=== PATIENT | male | born 1955 | race Caucasian/White ===

== ENCOUNTER 2019-09-19 10:44 | Inpatient (IN) | payer MEDICARE, BC, SELFPAY ==
--- NOTE | 2019-09-19 | ECHO_ITS ---
Patient Info Name: Bijan Garcia Age: 64 years : 1955 Gender: Male Ht: 68 in Wt: 200 lbs BSA: 2.11 m2 HR: 78 bpm BP: 121 / 75 mmHg Technical Quality: Good Exam Date: 09/19/2019 3:53 PM Exam Location: [facility] Pulmonary Exam Room: [facility] Patient Status: Inpatient Admit Date: 09/19/2019 Staff Ordering Physician: Teagan Edmonds NP [employer] Science Tutor: Dariana Pete RDCS Attending Provider: Omari Shetty MD Referring Physician: Grey JOEL; Exam Type: CA echo doppler w bubble study Study Info Indications - cva hx/o cad s/p stent Summary 1. Left ventricular chamber dimension is normal. 2. Left ventricular systolic function is normal, estimated at 65-70%. 3. The left ventricular diastolic function is grade I diastolic dysfunction. 4. E/e' 9 is minimally elevated. 5. Left atrial chamber dimension is mildly enlarged. 6. There is mild aortic valve sclerosis. 7. No pulmonary hypertension, estimated pulmonary arterial systolic pressure is 31 mmHg. Left Ventricle E/e' 9 is minimally elevated. Left ventricular chamber dimension is normal. Left ventricular systolic function is normal, estimated at 65-70%. The left ventricular diastolic function is grade I diastolic dysfunction. Right Ventricle Right ventricular chamber dimension is normal. Right ventricular systolic function is normal. Left Atria Left atrial chamber dimension is mildly enlarged. Right Atria Right atrial chamber dimension is normal. Atrial Septum Agitated saline administered opacified right sided cardiac chambers with and without vasalva maneuver without shunting to left sided chambers. Intact interatrial septum visualized by color flow and agitated saline imaging. Aortic Valve The aortic valve is trileaflet. There is mild aortic valve sclerosis. There is no aortic valve stenosis. There is no aortic valve regurgitation. Pulmonic Valve There is no pulmonic regurgitation. Mitral Valve There is no mitral valve stenosis. There is no mitral valve regurgitation. Tricuspid Valve There is no tricuspid valve regurgitation. No pulmonary hypertension, estimated pulmonary arterial systolic pressure is 31 mmHg. Pericardium/Pleural There is no pericardial effusion. Inferior Vena Cava Normal inferior vena cava with >50% collapse upon inspiration consistent with normal right atrial pressure, 5 mmHg. Aorta The aortic root size at the sinus of Valsalva is normal. Left Ventricular Outflow Tract Name Value Normal LVOT 2D LVOT Diameter 2.0 cm LVOT Doppler LVOT Peak Gradient 4 mmHg LVOT Mean Gradient 2 mmHg LVOT VTI 20 cm LVOT VTI/AV VTI Ratio 0.9 LVOT Stroke Volume 66 ml LVOT CO 13.2 l/min LVOT CI 6.2 l/min/m2 Pulmonic Valve Name Value Normal
--- NOTE | ~2019-09-19 | CT_ITS ---
EXAMINATION: CT brain wo con DATE: 09/19/2019 11:01 INDICATION: Left facial droop and weakness this morning TECHNIQUE: Computed tomography (CT) of the head was performed without intravenous contrast. The mA wa s adjusted according to patient size. Iterative reconstruction technique was employed. Exam dose: 60 5.33 mGy-cm total exam DLP. COMPARISON: None FINDINGS: Bilateral carotid siphon internal carotid artery calcifications. No intracranial mass lesion or hemorrhage or cerebrovascular accident is evident. No midline shift or mass effect. No subdural or epidural hematoma. No fracture or bone destruction of the cranial vault. Included paranasal sinuses and the mastoid air cells are normally developed and aerated. IMPRESSION: Bilateral carotid siphon internal carotid artery calcifications No acute intracranial finding is evident; CT is not sensitive for detection of hyperacute ischemic ce rebrovascular accident. MR brain scan with diffusion imaging would be more sensitive. Reviewed, dictated and finalized at Location [facility]. Reviewed, dictated and finalized at location B. IMPRESSION: Bilateral carotid siphon internal carotid artery calcifications No acute intracranial finding is evident; CT is not sensitive for detection of hyperacute ischemic cerebrovascular accident. MR brain scan with diffusion imag ing would be more sensitive.
--- NOTE | ~2019-09-19 | XR_ITS ---
XR chest 1V portable DATE: 09/19/2019 11:17 INDICATION: Cerebrovascular accident TECHNIQUE: Portable upright AP chest on 09/19/2019 1105 hours COMPARISON: None FINDINGS: There is mild atelectasis at the lung bases. No pulmonary consolidation is evident. No pleu ral effusion or pulmonary vascular congestion or pneumothorax. Normal heart size. Degenerative spurring of the thoracic spine. Osteoarthritis at the left glenohumeral joint. Degenerat j luis change of the left acromioclavicular joint. There is increased density at the metaphysis and proximal shaft of the right humerus which may be due to bone infarct or benign chondroid tumor. IMPRESSION: Mild atelectasis at the lung bases Reviewed, dictated and finalized at location B.
--- NOTE | ~2019-09-19 | CT_ITS ---
EXAMINATION: CT shoulder RT wo con DATE: 09/19/2019 20:34 INDICATION: Right shoulder pain. TECHNIQUE: Computed tomography (CT) of the right shoulder was performed without intravenous contrast. Automated exposure control and iterative reconstruction technique were employed. The dose-length pro duct was 538.43 mGy-cm. COMPARISON: Chest single view 09/19/2019 FINDINGS: Bone alignment is normal. No fracture. In the right humeral surgical neck and proximal diap hysis, there is a 5.4 x 2.8 cm lesion that demonstrates patchy sclerosis. There is mild osteoarthriti s of glenohumeral joint and severe osteoarthritis of acromioclavicular joint. IMPRESSION: 1. 5.4 cm sclerotic lesion in proximal right humerus. The differential diagnosis includes enchondroma and osteonecrosis. 2. Polyarticular osteoarthritis. Reviewed, dictated and finalized at location A. IMPRESSION: 1. 5.4 cm sclerotic lesion in proximal right humerus. The differential diagnosi s includes enchondroma and osteonecrosis. 2. Polyarticular osteoarthritis.
--- NOTE | ~2019-09-19 | US_ITS ---
EXAMINATION: US carotid duplex BI EXAM DATE: 09/19/2019 14:57 INDICATION: Left-sided hemiparesis. TECHNIQUE: Grayscale, color and pulsed Doppler images of the cervical carotid arteries were obtained . The degree of vessel stenosis is placed in one of the following categories: normal, <50% stenosis, 50-69% stenosis, >=70% stenosis but less than near-occlusion, near-occlusion, or occlusion. Note that percent stenosis relative to normal distal artery lumen diameter is indirectly measured from velocit y measurements as described by John, et al. Radiology 2003; 229:340-346. There is no prior study fo r comparison. FINDINGS: RIGHT SIDE: Right common carotid artery peak systolic velocity (PSV in cm/s): 74 Right bulb/internal carotid artery peak systolic velocity (PSV in cm/s): 83 Right internal carotid artery end diastolic velocity (EDV in cm/s): 23 Right ICA/CCA peak systolic ratio: 1.1 Right external carotid artery peak systolic velocity (PSV in cm/s): 100 Right vertebral artery antegrade flow: yes There is mild carotid bulb plaque. Velocity and Doppler waveforms in the common and internal carotid arteries is normal. LEFT SIDE: Left common carotid artery peak systolic velocity (PSV in cm/s): 86 Left bulb/internal carotid artery peak systolic velocity (PSV in cm/s): 76 Left internal carotid artery end diastolic velocity (EDV in cm/s): 27 Left ICA/CCA peak systolic ratio: 0.9 Left external carotid artery peak systolic velocity (PSV in cm/s): 62 Left vertebral artery antegrade flow: yes There is mild carotid bulb plaque. Velocity and Doppler waveforms in the common and internal carotid arteries is normal. IMPRESSION: 1. Less than 50 percent stenosis in the right internal carotid artery. 2. Less than 50 percent stenosis in the left internal carotid artery. > Reviewed, dictated and finalized at location A.
[2019-09-19 10:43] VITALS: BP 161/90; PULSE 92; RESP 14; TEMP 37; O2SAT 98
--- NOTE | 2019-09-19 10:46 | ECG_ITS ---
Measurements Intervals [place] Rate: 89 P: 13 DE: 136 QRS: 45 QRSD: 92 T: -7 QT: 342 QTc: 416 Interpretive Statements SINUS RHYTHM BORDERLINE ST-T WAVE ABNORMALITY- INF/LAT LEADS BORDERLINE ECG Electronically Signed On 09-19-2019 11:14:56 CDT by Kevin Story D.O.
[2019-09-19 10:56] LABS: Glucose Point of Care 220 (65-105)
--- NOTE | 2019-09-19 10:58 | ED.NEUROSD ---
HPI - Neuro Symptoms/Deficit General Chief Complaint: Neuro Symptoms/Deficit <BARBER Helm Last Filed: 09/19/19 15:39> Stated Complaint: L SIDED FACIAL WEAKNESS <BARBER Helm Last Filed: 09/19/19 15:39> Time Seen by Provider: 09/19/19 10:46 <BARBER Helm Last Filed: 09/19/19 15:39> Source: patient <BARBER Helm Last Filed: 09/19/19 15:39> Mode of arrival: ambulatory <BARBER Helm Last Filed: 09/19/19 15:39> Limitations: no limitations <BARBER Helm Filed: 09/19/19 15:39> History of Present Illness HPI Narrative: Patient is a 64-year-old male who presents with strokelike symptoms that began this morning patient notes that he was 10 minutes before 7 eating breakfast and noticed that he had some left-sided facial droop and weakness at the angle of the mouth patient notes that he also had mild headache at this time and some mild left eye discomfort. Patient denies similar occurrence of injury trauma or illness. On arrival patient resting comfortably in the room has not taken anything for his symptoms <BARBER Helm Last Filed: 09/19/19 15:39> Related Data Home Medications: Home Medications Medication Instructions Recorded Confirmed atorvastatin 20 mg PO DAILY 09/19/19 09/19/19 cholecalciferol (vitamin D3) 125 mcg PO DAILY 09/19/19 09/19/19 [Vitamin D3] lisinopril 5 mg PO DAILY 09/19/19 09/19/19 metformin 850 mg PO BID 09/19/19 09/19/19 sitagliptin [Januvia] 100 mg DAILY 09/19/19 09/19/19 <BARBER Helm Last Filed: 09/19/19 15:39> Allergies/Adverse Reactions: Allergies Allergy/AdvReac Type Severity Reaction Status Date / Time Iodinated Contrast Media Allergy Hives Verified 09/19/19 11:08 <BARBER Helm Last Filed: 09/19/19 15:39> Review of Systems Review of Systems: All systems reviewed & are unremarkable except as noted in HPI and below <Jairo Kelley PA-C - Last Filed: 09/19/19 15:39> [facility] Past Medical History Medical History: Medical History (Updated 09/19/19 @ 15:37 by Teagan Edmonds NP) Diabetes mellitus Hyperlipidemia Hypertension <Jairo Kelley PA-C - Last Filed: 09/19/19 15:39> Surgical History Surgical History: Surgical History (Updated 09/19/19 @ 15:38 by Teagan Edmonds NP) H/O heart artery stent about 20 years ago 1 stent. H/O shoulder surgery left side <Jairo Kelley PA-C - Last Filed: 09/19/19 15:39> Social History Social History: Social History Smoking status: Former smoker Alcohol intake: former Substance use: never Gender identity (if verbalized by the patient): Male Spiritual care concerns: No Agree to blood products: Yes <Jairo Kelley PA-C - Last Filed: 09/19/19 15:39> Exam Narrative: Exam Narrative: GENERAL: Well-appearing, well-nourished, and in no acute distress. HEAD: Normocephalic, atraumatic. EYES: PERRLA and EOMI. ENT: Nares clear, no rhinorrhea or epistaxis. Mucous membranes moist. Oropharynx without tonsillar hypertrophy exudate or other lesions. NECK: Supple. No adenopathy or masses. No carotid bruits or JVD CHEST: Clear to auscultation. No respiratory distress. No wheezes rales or rhonchi HEART: Regular rate and rhythm. No murmur heard. Normal peripheral pulses. ABDOMEN: Soft, nontender, nondistended EXTREMITIES: Normal range of motion. No edema. SKIN: Warm, dry, no rash. NEURO: No focal deficits aside from drooping of the angle of the left side of the mouth. Alert and oriented x3. Cranial nerves II through XII grossly intact. Normal speech. Motor and sensory intact and symmetrical in the extremities. No pronator drift. Normal [id number] and [id number]. 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 <Jairo Kelley PA-C - Last Filed: 09/19/19 15:39> Course Course Emerg
[2019-09-19] MEDS: SODIUM CHLORIDE 0.9% IV 1,000 ML 999 ML IV CONT (11:16)
[2019-09-19 11:35] LABS: Basophils Percent Auto 0.3 % (0.2-1.2); Eosinophils Absolute Auto 0.2 K/mm3 (0-0.3); Eosinophils Percent Auto 4.2 % (0-4.4); Hemoglobin 16.4 g/dL (14.0-18.0); Immature Granulocyte Absolute 0.02 K/mm3 (0.00-0.031); Immature Granulocyte Percent A 0.5 % (0-0.5); Immature Platelet Fraction Pct 5.1 % (0.9-11.2); Lymphocytes Percent Auto 36.7 % (18.3-44.2); Mean Corpuscular HGB Conc 35.7 g/dl (32-36); Mean Corpuscular Hemoglobin 31.5 pg (26-34); Mean Corpuscular Volume 88.3 fl (80-100); Monocytes Absolute Auto 0.4 K/mm3 (0.1-0.6); Neutrophils Absolute Auto 1.8 K/mm3 (1.3-6.7); Neutrophils Percent Auto 48.3 % (45.5-73.1); Platelet Count Result 101 k/mm3 (150-375); Red Blood Count 5.21 M/mm3 (4.6-6.20); Red Cell Distribution Width 12.6 % (11.5-14.5); White Blood Count 3.8 K/mm3 (4.5-10.0)
[2019-09-19 11:38] VITALS: BP 132/81; PULSE 87; RESP 16; O2SAT 96
[2019-09-19 11:40] LABS: Prothrombin Time 12.7 Seconds (11.1-14.7)
[2019-09-19 11:41] LABS: Blood Urea Nitrogen 19 mg/dL (9-20); Calcium 9.5 mg/dL (8.4-10.2); Carbon Dioxide 23 mmol/L (22-30); Chloride 101 mmol/L (98-107); Estimated Glomerular Filt Rate > 60; Glucose 200 mg/dL (75-110); Partial Thromboplastin Time 28.8 SECONDS (22.3-36.8); Potassium 4.1 mmol/L (3.4-5.0); Sodium 136 mmol/L (137-145)
[2019-09-19 11:53] LABS: Troponin I < 0.012 ng/mL (0.000-0.034)
[2019-09-19] MEDS: ASPIRIN 325 MG TABLET PO (12:20)
[2019-09-19 13:31] VITALS: BP 121/75; PULSE 78; RESP 19; O2SAT 96
[2019-09-19 13:36] VITALS: BMI 32.5
[2019-09-19] MEDS: LACTATED RINGERS 1,000 ML 75 ML IV CONT (14:03)
[2019-09-19 14:24] LABS: Glucose Point of Care 226 (65-105)
[2019-09-19 14:49] VITALS: PULSE 77
--- NOTE | 2019-09-19 15:28 | PM.IMHP ---
H&P: HPI History of Present Illness Chief complaint: CVA Narrative: Bijan Garcia is a 64 year old maleWith a past medical history of diabetes type 2, hypertension and hyperlipidemia. The patient stated that he woke up this morning and was eating cereal noticed that he was drooling somewhat around 7:00 a.m. this morning. The patient ran some errands and then noticed that his left eye was watering and was concerned about his eyesight. He spoke to his was a nurse. The patient decided to come to the emergency room. He was outside the 90 minutes window. He does take an aspirin at home. He just noticed the left facial droop and no other neurological problems. The carotid Doppler studies was performed an EKOS been ordered. CT scan was read as no acute intracranial findings is evidence CT is not sensitive for detection of hyperactive ischemic cerebrovascular accident MR brain scan was diffuse imaging would be more sensitive. However the patient does have cardiac stents from about 20 years ago and he is ineligible for a MRI. The patient's blood sugars have been in the 200s today. Patient stated they are typically in the 100s. Date of service 09/19/2019 Review of Systems Review of Systems: Narrative: no fever no chills All systems reviewed & are unremarkable except as noted in HPI and below Constitutional: Constitutional: Reports as per HPI and Reports no additional constitutional complaints Eyes: Eyes: Reports as per HPI and Reports no additional eye complaints ENT: Reports system reviewed and no additional complaints, except as documented and Reports Normal hearing present Cardiovascular: Cardiovascular: Reports no additional cardiovascular complaints Respiratory: Respiratory: Reports no additional respiratory complaints and Reports no additional respiratory complaints Gastrointestinal: Gastrointestinal: Reports as per HPI and Reports no additional gastrointestinal complaints Musculoskeletal: Musculoskeletal: Reports no additional musculoskeletal complaints Integumentary/Breasts: Skin/Breast: Reports system reviewed and no additional complaints, except as docu and Reports as per HPI Neurologic: Reports system reviewed and no additional complaints, except as documented, Reports as per HPI and Reports Normal hearing present Psychiatric: Psychiatric: Reports no additional psychiatric complaints and Reports as per HPI Endocrine: Endocrine: Reports no additional endocrine complaints Hematologic/Lymphatic: Hematologic/Lymphatic: Reports no additional hematologic/lymphatic complaints Allergic/Immunologic: Allergic/Immunologic: Reports no additional allergic/immunologic complaints [facility] Past Medical History Medical History (Updated 09/19/19 @ 15:37 by Teagan A. Benhoff, ACRYLIC FABRICATOR) Diabetes mellitus Hyperlipidemia Hypertension Surgical History Surgical History (Updated 09/19/19 @ 15:38 by Teagan Edmonds NP) H/O heart artery stent about 20 years ago 1 stent. H/O shoulder surgery left side Family History Family History (Updated 09/19/19 @ 15:45 by Teagan Edmonds NP) Father Parkinsons Mother Polio Sibling Pacemaker Social History Social History Smoking status: Former smoker Alcohol intake: former Substance use: never Gender identity (if verbalized by the patient): Male Spiritual care concerns: No Agree to blood products: Yes Meds Home Medications and Allergies Home Medications Medication Instructions Recorded Confirmed Type atorvastatin 20 mg PO DAILY 09/19/19 09/19/19 History cholecalciferol (vitamin D3) 125 mcg PO DAILY 09/19/19 09/19/19 History [Vitamin D3] lisinopril 5 mg PO DAILY 09/19/19 09/19/19 History metformin 850 mg PO BID 09/19/19 09/19/19 History sitagliptin [Januvia] 100 mg DAILY 09/19/19 09/19/19 History Allergies Allergy/AdvReac Type Severity Reaction Status Date / Time Iodinated Contrast Media All
[2019-09-19 16:00] VITALS: BP 125/68; PULSE 74; PULSE 79; RESP 14; TEMP 36.7; O2SAT 98
[2019-09-19] MEDS: INSULIN ASPART (*BKC) 100 UNITS/ML SUB-Q (17:26)
[2019-09-19 17:42] LABS: Glucose Point of Care 262 (65-105)
[2019-09-19 20:00] VITALS: BP 131/80; PULSE 73; RESP 18; TEMP 36.1; O2SAT 96
[2019-09-19] MEDS: FAMOTIDINE 20 MG/2 ML VIAL IV PUSH (21:00)
[2019-09-20] VITALS (7 sets, daily range): BP systolic 145–150; BP diastolic 86–91; PULSE 57–82; RESP 14–16; TEMP 36.2–36.3; O2SAT 95–98
[2019-09-20 06:15] LABS: Basophils Percent Auto 0.3 % (0.2-1.2); Eosinophils Absolute Auto 0.1 K/mm3 (0-0.3); Eosinophils Percent Auto 4.4 % (0-4.4); Hematocrit 44.8 % (42.0-52.0); Hemoglobin 15.3 g/dL (14.0-18.0); Immature Granulocyte Absolute 0.01 K/mm3 (0.00-0.031); Immature Granulocyte Percent A 0.3 % (0-0.5); Lymphocytes Absolute Auto 1.57 K/mm3 (0.9-3.2); Lymphocytes Percent Auto 49.5 % (18.3-44.2); Mean Corpuscular HGB Conc 34.2 g/dl (32-36); Mean Corpuscular Hemoglobin 30.8 pg (26-34); Mean Corpuscular Volume 90.1 fl (80-100); Mean Platelet Volume 10.9 fl (7.4-10.4); Monocytes Absolute Auto 0.4 K/mm3 (0.1-0.6); Neutrophils Absolute Auto 1.1 K/mm3 (1.3-6.7); Neutrophils Percent Auto 34.5 % (45.5-73.1); Platelet Count Result 87 k/mm3 (150-375); Red Blood Count 4.97 M/mm3 (4.6-6.20); Red Cell Distribution Width 12.4 % (11.5-14.5); White Blood Count 3.2 K/mm3 (4.5-10.0)
[2019-09-20 06:24] LABS: Alanine Aminotransferase 55 U/L (4-50); Albumin Level 3.9 g/dL (3.5-5.1); Alkaline Phosphatase 49 U/L (38-126); Aspartate Amino Transferase 46 U/L (17-59); Bilirubin,Total 1.7 mg/dL (0.2-1.3); Blood Urea Nitrogen 14 mg/dL (9-20); Carbon Dioxide 25 mmol/L (22-30); Chloride 104 mmol/L (98-107); Estimated CRCL calculation 101 ml/min; Estimated Glomerular Filt Rate > 60; Glucose 257 mg/dL (75-110); Hemoglobin A1C 9.6 % (<5.7); Magnesium 1.5 mg/dL (1.6-2.3); Sodium 137 mmol/L (137-145)
[2019-09-20 07:53] LABS: Glucose Point of Care 181 (65-105)
[2019-09-20] MEDS: CHOLECALCIFEROL 1,000 UNIT TABLET 5000 UNITS PO (09:26)
[2019-09-20] MEDS: ATORVASTATIN 20 MG TABLET PO (09:26)
[2019-09-20] MEDS: ASPIRIN 81 MG ENTERIC TABLET PO (09:26)
[2019-09-20] MEDS: MAGNESIUM SULFATE 3GM/D5W100ML 3 GM/100 ML BAG IVPB (09:27)
[2019-09-20] MEDS: INSULIN ASPART (*BKC) 100 UNITS/ML SUB-Q (11:29)
[2019-09-20 11:41] LABS: Glucose Point of Care 253 (65-105)
--- NOTE | 2019-09-20 12:56 | CONS_ITS ---
DATE OF CONSULTATION: HISTORY OF PRESENT ILLNESS: This 64-year-old has been admitted to [facility] through the emergency room with the ongoing history of 1. Diabetes mellitus, type 2. 2. Hypertension. 3. Hyperlipidemia. 4. History of waking up in the morning, while eating cereal, was drooling on somewhat around 7:00 a.m. in the morning. He was able to run from and noted that his left eye was watering and was concerned about his vision. He spoke to his with the nurse. He was sent to the emergency room and he was obviously outside the 90 minutes window. He did take an aspirin at home that he noted left side of the face was drooping, but with no other neurological symptomatology. Initial CT scan in the emergency room was negative. Brain scan was ordered subsequently. The patient has had a cardiac stent about 20 years ago and was ineligible for an MRI and blood sugar had been running in 200s. MEDICAL HISTORY: He has ongoing history of, as mentioned above, diabetes mellitus with hypertension and hyperlipidemia in the past. He has undergone coronary stenting about 20 years ago and a shoulder surgery on the left side. SOCIAL HISTORY: He is a former smoker. Does not use substance and former drinker as well. MEDICATIONS: At the time of admission to the hospital, he was taking 1. Atorvastatin 20 mg daily. 2. Cholecalciferol 125 mcg daily. 3. Lisinopril 5 mg daily. 4. Metformin 850 twice a day. 5. Sitagliptin 100 mg daily. ALLERGIES: HE IS ALLERGIC TO IODINE DYE. PHYSICAL EXAMINATION: VITAL SIGNS: Evaluation up until now revealed to be afebrile with pulse of 92, respirations 14, blood pressure 161/90, came down to 121/75, pulse ox 98%. GENERAL: Examination revealed him to be awake, alert, cooperative, in no obvious acute distress. HEENT: Normocephalic. Pupils round and regular. Juarez of vision full. Extraocular movements full. Face symmetrical. Tongue midline. NECK: There is no cervical bruit. No meningeal signs. HEART: Regular with no murmur. LUNGS: Clear to auscultation. ABDOMEN: Soft with no organomegaly. NEUROLOGICAL: He is awake, alert, and oriented x3. His speech not dysphasic, not dysarthric, not dysphonic. Pupils round and regular. Juarez of vision full. Extraocular movements full. Face symmetrical. Tongue midline. Motor examination revealed him to have no drift of 1 side, other side, tone normal. Reflexes symmetrical. Plantars downgoing. There is no evidence of gross cerebellar deficit. LABORATORY DATA: Evaluation up until now revealed him to have normal CBC except WBC 3.8, hemoglobin 16.4, platelet count also 101. The basic metabolic panel is normal with glucose 200. Troponin less than 0.012. Initial CT scan of the head is with bilateral carotid siphon internal carotid artery calcification with a CT scan stealth is negative. Chest x-ray with mild atelectasis at the lung bases. Carotid study, less than 50% stenosis bilaterally. At this stage, the patient is receiving 1. Atorvastatin 20 mg daily. 2. Lisinopril 5 mg daily. 3. Metformin 850 twice a day. 4. Sitagliptin 100 mg daily. MRI of the brain was obtained for further delineation whether he has early stroke or not. In the meantime, treatment will be continued as such. ARNULFO BARCLAY M.D. SEMICONDUCTOR DEVELOPMENT TECHNICIAN SEMICONDUCTOR DEVELOPMENT TECHNICIAN D I MT: Brenda ALLEN
--- NOTE | 2019-09-20 14:56 | PM.DS ---
DS: Diagnosis Admitting Diagnosis Admitting Diagnosis: Cerebral infarction, unspecified Discharge Diagnosis (1) Cerebrovascular accident: Code(s): I63.9 - Cerebral infarction, unspecified Status: Acute Assessment and Plan: Presented with left sided facial droop. He is unable to get MRI due to his cardiac stent. CT of the brain was negative. Echo showed Left ventricular chamber dimension is normal. Left ventricular systolic function is normal, estimated at 65-70%. The left ventricular diastolic function is grade I diastolic dysfunction. E/e' 9 is minimally elevated. Left atrial chamber dimension is mildly enlarged. There is mild aortic valve sclerosis. No pulmonary hypertension, estimated pulmonary arterial systolic pressure is 31 mmHg. Carotid artery showed Less than 50 percent stenosis in the right internal carotid artery. Less than 50 percent stenosis in the left internal carotid artery. Dr. Ortiz Neurologist evaluated the patient and recommended starting Aspirin 81 mg daily, then adding Plavix 75 mg daily for [address] Ortiz recommended since he cannot have IV Contrast and Cannot have an MRI, to repeat CT Brain in 4-5 days and have him follow up in the office for further evaluation. Will have the patient check and outpatient Fasting Lipid Panel in 1 week and follow up with PCP. The patient understands and agrees with the plan. All questions answered. (2) Diabetes mellitus: Code(s): E11.9 - Type 2 diabetes mellitus without complications Status: Chronic Assessment and Plan: The patient states he has been diagnosed with diabetes for the last 2 years. I informed him hemoglobin A1c is 9.6 today and his states this is improved. The patient states his morning glucose usually runs around 180. He has never been on insulin before. He reports gaining 30 lb recently. I informed the patient that he needs better diabetes control because it can cause further damage to his arteries and cause further MRIs or CVAs. Told patient he has a follow-up with his primary care provider within 1 week for further evaluation and he may need to be started on insulin for better diabetes control until he can lose weight, exercise, work on his diet. The patient understands and agrees the plan all questions answered. (3) Hypertension: Code(s): I10 - Essential (primary) hypertension Status: Chronic Assessment and Plan: BP this morning was slightly elevated at 150/91. He was continued on his home medications. (4) Hyperlipidemia: Code(s): E78.5 - Hyperlipidemia, unspecified Status: Chronic Assessment and Plan: Continue with statin. Will recheck a fasting lipid panel in 1 week. DS: Summary Hospital Course Reason for hospitalization: The patient is a 64-year-old man with a history of diabetes type 2, hypertension, hyperlipidemia, [place] in 1999, who presented to the emergency room with left-sided facial droop since around 7:00 a.m. prior to arrival. 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 Initial vitals showed temperature 98.6?, blood pressure 161/90, heart rate 92, respiratory rate 14, oxygen saturation 98% on room air. Initial labs showed slight leukopenia at 3,800, thrombocytopenia at 101, normal coag panel, slight hyponatremia at 136, serum glucose 200, negative troponin. CT Head showed Bilateral carotid siphon internal carotid artery calcifications. No acute intracranial finding is evident; CT is not sensitive for detection of hyperacute ischemic cerebrovascular accident. MR brain scan with diffusion imaging would be more sensitive. The patient
== END 2019-09-20 16:20 | disposition home or self-care (01) | DRG 66 ==
LOC: ANHED 12:27 → ANH3MED 12:41
PROVIDERS: Emergency Medicine Emergency Medical Services; Nurse Practitioner; Admitting Provider Internal Medicine; Emergency Provider Emergency Medicine; Visit Provider Physician Assistant
DX: I63.50 Cerebral infarction due to unspecified occlusion or stenosis of unspecified cerebral artery (principal); G47.33 Obstructive sleep apnea (adult) (pediatric); I10 Essential (primary) hypertension; E78.5 Hyperlipidemia, unspecified; E11.9 Type 2 diabetes mellitus without complications; Z79.82 Long term (current) use of aspirin; Z95.5 Presence of coronary angioplasty implant and graft; R29.810 Facial weakness; Z87.891 Personal history of nicotine dependence; I25.2 Old myocardial infarction
CPT/HCPCS: 36415; 70450; 71045; 73200; 80048; 80053; 82948; 83036; 83735; 84443; 84484; 85025; 85055; 85610; 85730; 93005; 93306; 93880; 96360; 96375; 99285; A9270; J1815; J3475; J7030; J7120

== ENCOUNTER 2024-12-06 07:26 | Outpatient (CLI) | payer MEDICARE, BC, SELFPAY ==
--- NOTE | ~2024-12-06 | MR_ITS ---
MRI of the right knee Clinical history: Pain Technique: Coronal proton density and proton density-weighted images, sagittal proton-density and T2 fat-sat images, and axial proton-density fat-saturated images were acquired. Findings: Anterior and posterior cruciate ligaments are intact. Medial collateral ligament and the la teral collateral ligament, posterior intact. Popliteus tendon is intact. There is complex tearing of the body segment of the medial meniscus which is partially extruded into the medial gutter. No lateral meniscal tear seen. 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 There is extensive moderate to high-grade chondromalacia the medial femoral condyle and at the inner aspect of the medial tibial plateau. Bone marrow signals are unremarkable. Extensor mechanism is intact. Minimal joint effusion present. No David's cyst. Impression: Complex tearing of the body segment of the medial meniscus. Degenerative change of the medial and patellofemoral compartments, as above. Reviewed, dictated and finalized at location . Impression: Complex tearing of the body segment of the medial meniscus. Degenerative change of the medial and patellofemoral compartments, as above.
== END 2024-12-06 07:27 | disposition home or self-care (01) ==
LOC: MICIMG 07:27
PROVIDERS: PCP Family Medicine; Visit Provider Family Medicine
DX: S83.231A Complex tear of medial meniscus, current injury, right knee, initial encounter (principal); M17.11 Unilateral primary osteoarthritis, right knee; X58.XXXA Exposure to other specified factors, initial encounter
CPT/HCPCS: 73721

== ENCOUNTER 2025-05-03 17:10 | Emergency (ER) | payer MEDICARE, BC, SELFPAY ==
--- NOTE | ~2025-05-03 | CT_ITS ---
CT abdomen pelvis wo con INDICATION:incarcerated inguinal hernia . COMPARISON: None. TECHNIQUE: Axial 2.5 mm images of the abdomen were obtained without IV or oral contrast. Diagnostic sensitivity is limited due to lack of IV contrast. FINDINGS: The lung bases are clear. Nodular liver may represent cirrhosis. Correlate clinically. Spleen is enlarged. No intrahepatic mass or ductal dilatation is evident. The gallbladder is unremarkable. Pancreas is unremarkable. The adrenal glands are symmetric in size. The kidneys are unremarkable. No intrarenal stones are noted. There is no hydronephrosis. The stomach and bowel loops are unremarkable. The appendix is normal in appearance. There is colonic diverticulosis without evidence of acute diverticulitis. There is right inguinal hernia containing distal ileum. The bladder and rectum are normal. No free intraperitoneal fluid or air is evident. There is no significant retroperitoneal lymphadenopathy. The aorta, visceral vessels and renal arteries demonstrate normal caliber. The lower thoracic and lumbar vertebrae are in normal alignment. IMPRESSION: Right inguinal hernia containing small bowel loops. No bowel obstruction. Splenomegaly. Nodular liver suggestive of cirrhosis. All CT scans at this facility are performed using low dose modulation techniques as appropriate to perform exam including the following: automated exposure control; use of iterative reconstruction technique; adjustment of the mA and/or kV according to patient size (this includes techniques or standardized protocols for targeted exams where dose is matched to indication/reason for exam). Reviewed, dictated and finalized at location S. [facility] IMPRESSION: Right inguinal hernia containing small bowel loops. No bowel obstruction. Splenomegaly. Nodular liver suggestive of cirrhosis. All CT scans at this facility are performed using low dose modulation techniqu es as appropriate to perform exam including the following: automated exposure c ontrol; use of iterative reconstruction technique; adjustment of the mA and/or kV according to patient size (this includes techniques or standardized protocol s for targeted exams where dose is matched to indication/reason for exam).
[2025-05-03 17:11] VITALS: BP 136/93; PULSE 100; RESP 18; TEMP 36.6; O2SAT 99
[2025-05-03 17:24] VITALS: BP 143/88; PULSE 103; RESP 16; O2SAT 99
--- NOTE | 2025-05-03 17:28 | PC.NURSE ---
Pt. states he would prefer to try and provide urine sample until after receiving pain medication d/t increased pain with movement.
--- NOTE | 2025-05-03 17:53 | PC.NURSE ---
Pt. to CT.
[2025-05-03 18:27] LABS: Hematocrit 41.4 % (42.0-52.0); Hemoglobin 14.9 g/dL (14.0-18.0); Immature Granulocyte Percent A 0.3 % (0-0.5); Lymphocytes Absolute Auto 1.51 K/mm3 (0.9-3.2); Mean Corpuscular HGB Conc 36.0 g/dl (32-36); Mean Corpuscular Hemoglobin 30.6 pg (26-34); Mean Corpuscular Volume 85.0 fl (80-100); Nucleated Red Blood Cells Absolute Auto 0.000 K/mm3 (0.0-0.012); Nucleated Red Blood Cells Perc 0.0 % (0.0-0.2); Platelet Count Result 121 k/mm3 (150-375); Red Blood Count 4.87 M/mm3 (4.6-6.20); White Blood Count 3.8 K/mm3 (4.5-10.0)
[2025-05-03 18:38] LABS: INR 1.2; Prothrombin Time 14.7 Seconds (11.1-14.7)
[2025-05-03 18:42] VITALS: BP 162/93; PULSE 96; RESP 16; O2SAT 97
[2025-05-03] MEDS: ONDANSETRON INJ 4 MG/2 ML VIAL IV PUSH (18:43)
[2025-05-03 18:44] LABS: Alanine Aminotransferase 28 U/L (6-50); Albumin Level 4.4 g/dL (3.5-5.1); Alkaline Phosphatase 67 U/L (38-126); Anion Gap 10 mmol/L (4-12); Aspartate Amino Transferase 24 U/L (17-59); Bilirubin,Total 2.9 mg/dL (0.2-1.3); Blood Urea Nitrogen 23 mg/dL (9-20); Calcium 9.3 mg/dL (8.4-10.2); Carbon Dioxide 22 mmol/L (22-30); Chloride 104 mmol/L (98-107); Estimated CRCL calculation 72 ml/min; Estimated Glomerular Filt Rate > 60; Glucose 201 mg/dL (65-110); Lipase 70 U/L (23-300); Potassium 3.9 mmol/L (3.4-5.0); Sodium 136 mmol/L (137-145); Total Protein 6.9 g/dL (6.3-8.2)
[2025-05-03] MEDS: diazePAM INJ (*CRX) 10 MG/2 ML SYRINGE 2.5 MG IV PUSH (18:46)
[2025-05-03] MEDS: MORPHINE SULFATE (*CRX) 4 MG/ML INJ IV PUSH (18:52)
--- NOTE | 2025-05-03 18:58 | PC.NURSE ---
Dr. Gonzalez at bedside and able to reduce R. inguinal hernia. Pt. states it feels back to his normal.
--- NOTE | 2025-05-03 19:53 | ED.ABDPAIN ---
HPI - Abdominal Pain General Chief Complaint: Abdominal Pain Stated Complaint: hernia issue Time Seen by Provider: 05/03/25 17:28 Source: patient Mode of arrival: ambulatory Limitations: no limitations History of Present Illness HPI narrative: 70-year-old with a history of hypertension, hyperlipidemia, right inguinal hernia presents to the ER with severe pain in the right inguinal area. Patient states that he can manually reduce on his own however on at this time he is unable to reduce the having significant pain. Denies any nausea or vomiting. MD elicited complaint: abdominal pain Pertinent past history: none Onset (ago): hour(s) (1) Pain Consistency: constant Location: RLQ Severity: moderate Quality: aching Radiation: RLQ Migration to: no migration Exacerbating factors: nothing Relieving factors: nothing Related Data Home Medications ?Medication ?Instructions ?Recorded ?Confirmed ?Last Taken ?Type atorvastatin 20 mg tablet 20 mg PO DAILY 09/19/19 09/19/19 09/19/19 History cholecalciferol (vitamin D3) 125 125 mcg PO DAILY 09/19/19 09/19/19 Unknown History mcg (5,000 unit) tablet (Vitamin D3) lisinopril 5 mg tablet 5 mg PO DAILY 09/19/19 09/19/19 09/19/19 History metformin 850 mg tablet 850 mg PO BID 09/19/19 09/19/19 09/19/19 History sitagliptin phosphate 100 mg 100 mg DAILY 09/19/19 09/19/19 09/19/19 History tablet (Januvia) Allergies Allergy/AdvReac Type Severity Reaction Status Date / Time Iodinated Contrast Media Allergy Hives Verified 05/03/25 17:13 Review of Systems Review of Systems: All systems reviewed & are unremarkable except as noted in HPI and below Constitutional: Constitutional: Reports no additional constitutional complaints Eyes: Eyes: Reports no additional eye complaints ENT: Reports system reviewed and no additional complaints, except as documented Cardiovascular: Cardiovascular: Reports no additional cardiovascular complaints Respiratory: Respiratory: Reports no additional respiratory complaints Gastrointestinal: Gastrointestinal: Reports as per HPI Musculoskeletal: Musculoskeletal: Reports no additional musculoskeletal complaints [facility] Past Medical History Medical History Hyperlipidemia Hypertension Diabetes mellitus Surgical History Surgical History H/O heart artery stent about 20 years ago 1 stent. H/O shoulder surgery left side Family History Family History Father Parkinsons Mother Polio Sibling Pacemaker Social History Social History Smoking status: Former smoker Alcohol intake: former Substance use: never Gender identity (if verbalized by the patient): Male Spiritual care concerns: No Agree to blood products: Yes Exam Narrative: GENERAL: Well-appearing, well-nourished, and in no acute distress. HEAD: Normocephalic, atraumatic. EYES: PERRLA and EOMI. ENT: Nares clear, no rhinorrhea or epistaxis. Mucous membranes moist. NECK: Supple. CHEST: Clear to auscultation. No respiratory distress. HEART: Regular rate and rhythm. No murmur heard. Normal peripheral pulses. ABDOMEN: Soft, nontender, nondistended, has right inguinal hernia , tender and on palpation . EXTREMITIES: Normal range of motion. No edema. SKIN: Warm, dry, no rash. NEURO: No focal deficits. Alert and oriented x3. PSYCH: Normal mood and affect. Course Course Emergency Course: pt was given IV morphine for pain control and Valium 2.5 mg to relax , once pain improved i was able to reduce the Hernia, he feels much better , i discussed with Dr. Paez , pt can be discharged home and followed in the office on Tuesday . i did inform the pt about his lab and CT findings, he does feel comfortable going home. Vital Signs Vital signs: Vital Signs Temperature 36.6 C 05/03/25 17:11 Pulse Rate 100 05/03/25 17:11 Respiratory Rate 18 05/03/25 17:11 Blood Pressure 136/93 H 05/03/25 17:11 Pulse Oximetry 99 05/03/25 17:11 Oxygen Delivery Room Air 05/03/25 17:11 Temperature 36.6 C 05/03/25 17:11 Pulse Rate 96 05/03/25 18:42 Respiratory Rate 16 05/03/25 18:42 Blood Pressure 162/93 H 05/03/25 18:42 Pulse Oximetry 97 05/03/25 18:42 Oxygen Delivery Room Air 05/03/25 17:24 MDM - Abdominal Pain Lab Data 05/03/25 18:12 11/14/25 18:12 Labs: Lab Results 05/03/25 05/03/25 05/03/25 Range/Units 18:12 18:12 18:12 WBC 3.8 L Cancelled (4.5-10.0) K/mm3 RBC 4.87 Cancelled (4.6-6.20) M/mm3 Hgb 14.9 (14.0-18.0) g/dL Hct (42.0-52.0) % MCV (80-100) fl MCH (26-34) pg MCHC (32-36) g/dl RDW (11.5-14.5) % Plt Count (150-375) k/mm3 MPV (7.4-10.4) fl Immature Gran % (Auto) (0-0.5) % Neut % (Auto) (45.5-73.1) % Lymph % (Auto) (18.3-44.2) % [place] % (Auto) (2.6-8.5) % Eos % (Auto) (0-4.4) % Baso % (Auto) (0.2-1.2) % Lymph # (Auto) (0.9-3.2) K/mm3 [place] # (Auto) (0.1-0.6) K/mm3 Eos # (Auto) (0-0.3) K/mm3 Baso # (Auto) (0.0-0.1) K/mm3 Abs Immat Gran (auto) (0.00-0.031) K/mm3 Absolute Neuts (auto) (1.3-6.7) K/mm3 Absolute Nucleated RBC (0.0-0.012) K/mm3 Nucleated RBC % (0.0-0.2) % % Immature Plt Fraction PT (11.1-14.7) Seconds INR Sodium (137-145) mmol/L Potassium (3.4-5.0) mmol/L Chloride (98-107) mmol/L Carbon Dioxide (22-30) mmol/L Anion Gap (4-12) mmol/L BUN (9-20) mg/dL Creatinine (0.7-1.3) mg/dL Estim Creat Clear Calc ml/min Estimated GFR (59 - ) Glucose (65-110) mg/dL Lactic Acid (0.7-2.0) mmol/L Calcium (8.4-10.2) mg/dL Total Bilirubin (0.2-1.3) mg/dL AST (17-59) U/L ALT (6-50) U/L Alkaline Phosphatase (38-126) U/L Total Protein (6.3-8.2) g/dL Albumin (3.5-5.1) g/dL Lipase (23-300) U/L 05/03/25 05/03/25 05/03/25 Range/Units 18:12 18:12 18:12 WBC (4.5-10.0) K/mm3 RBC (4.6-6.20) M/mm3 Hgb Cancelled (14.0-18.0) g/dL Hct 41.4 L Cancelled (42.0-52.0) % MCV 85.0 Cancelled (80-100) fl MCH 30.6 (26-34) pg MCHC (32-36) g/dl RDW (11.5-14.5) % Plt Count (150-375) k/mm3 MPV (7.4-10.4) fl Immature Gran % (Auto) (0-0.5) % Neut % (Auto) (45.5-73.1) % Lymph % (Auto) (18.3-44.2) % [place] % (Auto) (2.6-8.5) % Eos % (Auto) (0-4.4) % Baso % (Auto) (0.2-1.2) % Lymph # (Auto) (0.9-3.2) K/mm3 [place] # (Auto) (0.1-0.6) K/mm3 Eos # (Auto) (0-0.3) K/mm3 Baso # (Auto) (0.0-0.1) K/mm3 Abs Immat Gran (auto) (0.00-0.031) K/mm3 Absolute Neuts (auto) (1.3-6.7) K/mm3 Absolute Nucleated RBC (0.0-0.012) K/mm3 Nucleated RBC % (0.0-0.2) % % Immature Plt Fraction PT (11.1-14.7) Seconds INR Sodium (137-145) mmol/L Potassium (3.4-5.0) mmol/L Chloride (98-107) mmol/L Carbon Dioxide (22-30) mmol/L Anion Gap (4-12) mmol/L BUN (9-20) mg/dL Creatinine (0.7-1.3) mg/dL Estim Creat Clear Calc ml/min Estimated GFR (59 - ) Glucose (65-110) mg/dL Lactic Acid (0.7-2.0) mmol/L Calcium (8.4-10.2) mg/dL Total Bilirubin (0.2-1.3) mg/dL AST (17-59) U/L ALT (6-50) U/L Alkaline Phosphatase (38-126) U/L Total Protein (6.3-8.2) g/dL Albumin (3.5-5.1) g/dL Lipase (23-300) U/L 05/03/25 05/03/25 05/03/25 Range/Units 18:12 18:12 18:12 WBC (4.5-10.0) K/mm3 RBC (4.6-6.20) M/mm3 Hgb (14.0-18.0) g/dL Hct (42.0-52.0) % MCV (80-100) fl MCH Cancelled (26-34) pg MCHC 36.0 Cancelled (32-36) g/dl RDW 13.2 Cancelled (11.5-14.5) % Plt Count 121 L (150-375) k/mm3 MPV (7.4-10.4) fl Immature Gran % (Auto) (0-0.5) % Neut % (Auto) (45.5-73.1) % Lymph % (Auto) (18.3-44.2) % [place] % (Auto) (2.6-8.5) % Eos % (Auto) (0-4.4) % Baso % (Auto) (0.2-1.2) % Lymph # (Auto) (0.9-3.2) K/mm3 [place] # (Auto) (0.1-0.6) K/mm3 Eos # (Auto) (0-0.3) K/mm3 Baso # (Auto) (0.0-0.1) K/mm3 Abs Immat Gran (auto) (0.00-0.031) K/mm3 Absolute Neuts (auto) (1.3-6.7) K/mm3 Absolute Nucleated RBC (0.0-0.012) K/mm3 Nucleated RBC % (0.0-0.2) % % Immature Plt Fraction PT (11.1-14.7) Seconds INR Sodium (137-145) mmol/L Potassium (3.4-5.0) mmol/L Chloride (98-107) mmol/L Carbon Dioxide (22-30) mmol/L Anion Gap (4-12) mmol/L BUN (9-20) mg/dL Creatinine (0.7-1.3) mg/dL Estim Creat Clear Calc ml/min Estimated GFR (59 - ) Glucose (65-110) mg/dL Lactic Acid (0.7-2.0) mmol/L Calcium (8.4-10.2) mg/dL Total Bilirubin (0.2-1.3) mg/dL AST (17-59) U/L ALT (6-50) U/L Alkaline Phosphatase (38-126) U/L Total Protein (6.3-8.2) g/dL Albumin (3.5-5.1) g/dL Lipase (23-300) U/L 05/03/25 05/03/25 05/03/25 Range/Units 18:12 18:12 18:12 WBC (4.5-10.0) K/mm3 RBC (4.6-6.20) M/mm3 Hgb (14.0-18.0) g/dL Hct (42.0-52.0) % MCV (80-100) fl MCH (26-34) pg MCHC (32-36) g/dl RDW (11.5-14.5) % Plt Count Cancelled (150-375) k/mm3 MPV 10.2 Cancelled (7.4-10.4) fl Immature Gran % (Auto) 0.3 Cancelled (0-0.5) % Neut % (Auto) 49.0 (45.5-73.1) % Lymph % (Auto) (18.3-44.2) % [place] % (Auto) (2.6-8.5) % Eos % (Auto) (0-4.4) % Baso % (Auto) (0.2-1.2) % Lymph # (Auto) (0.9-3.2) K/mm3 [place] # (Auto) (0.1-0.6) K/mm3 Eos # (Auto) (0-0.3) K/mm3 Baso # (Auto) (0.0-0.1) K/mm3 Abs Immat Gran (auto) (0.00-0.031) K/mm3 Absolute Neuts (auto) (1.3-6.7) K/mm3 Absolute Nucleated RBC (0.0-0.012) K/mm3 Nucleated RBC % (0.0-0.2) % % Immature Plt Fraction PT (11.1-14.7) Seconds INR Sodium (137-145) mmol/L Potassium (3.4-5.0) mmol/L Chloride (98-107) mmol/L Carbon Dioxide (22-30) mmol/L Anion Gap (4-12) mmol/L BUN (9-20) mg/dL Creatinine (0.7-1.3) mg/dL Estim Creat Clear Calc ml/min Estimated GFR (59 - ) Glucose (65-110) mg/dL Lactic Acid (0.7-2.0) mmol/L Calcium (8.4-10.2) mg/dL Total Bilirubin (0.2-1.3) mg/dL AST (17-59) U/L ALT (6-50) U/L Alkaline Phosphatase (38-126) U/L Total Protein (6.3-8.2) g/dL Albumin (3.5-5.1) g/dL Lipase (23-300) U/L 05/03/25 05/03/25 05/03/25 Range/Units 18:12 18:12 18:12 WBC (4.5-10.0) K/mm3 RBC (4.6-6.20) M/mm3 Hgb (14.0-18.0) g/dL Hct (42.0-52.0) % MCV (80-100) fl MCH (26-34) pg MCHC (32-36) g/dl RDW (11.5-14.5) % Plt Count (150-375) k/mm3 MPV (7.4-10.4) fl Immature Gran % (Auto) (0-0.5) % Neut % (Auto) Cancelled (45.5-73.1) % Lymph % (Auto) 40.1 Cancelled (18.3-44.2) % [place] % (Auto) 9.5 H Cancelled (2.6-8.5) % Eos % (Auto) 0.8 (0-4.4) % Baso % (Auto) (0.2-1.2) % Lymph # (Auto) (0.9-3.2) K/mm3 [place] # (Auto) (0.1-0.6) K/mm3 Eos # (Auto) (0-0.3) K/mm3 Baso # (Auto) (0.0-0.1) K/mm3 Abs Immat Gran (auto) (0.00-0.031) K/mm3 Absolute Neuts (auto) (1.3-6.7) K/mm3 Absolute Nucleated RBC (0.0-0.012) K/mm3 Nucleated RBC % (0.0-0.2) % % Immature Plt Fraction PT (11.1-14.7) Seconds INR Sodium (137-145) mmol/L Potassium (3.4-5.0) mmol/L Chloride (98-107) mmol/L Carbon Dioxide (22-30) mmol/L Anion Gap (4-12) mmol/L BUN (9-20) mg/dL Creatinine (0.7-1.3) mg/dL Estim Creat Clear Calc ml/min Estimated GFR (59 - ) Glucose (65-110) mg/dL Lactic Acid (0.7-2.0) mmol/L Calcium (8.4-10.2) mg/dL Total Bilirubin (0.2-1.3) mg/dL AST (17-59) U/L ALT (6-50) U/L Alkaline Phosphatase (38-126) U/L Total Protein (6.3-8.2) g/dL Albumin (3.5-5.1) g/dL Lipase (23-300) U/L 05/03/25 05/03/25 05/03/25 Range/Units 18:12 18:12 18:12 WBC (4.5-10.0) K/mm3 RBC (4.6-6.20) M/mm3 Hgb (14.0-18.0) g/dL Hct (42.0-52.0) % MCV (80-100) fl MCH (26-34) pg MCHC (32-36) g/dl RDW (11.5-14.5) % Plt Count (150-375) k/mm3 MPV (7.4-10.4) fl Immature Gran % (Auto) (0-0.5) % Neut % (Auto) (45.5-73.1) % Lymph % (Auto) (18.3-44.2) % [place] % (Auto) (2.6-8.5) % Eos % (Auto) Cancelled (0-4.4) % Baso % (Auto) 0.3 Cancelled (0.2-1.2) % Lymph # (Auto) 1.51 Cancelled (0.9-3.2) K/mm3 [place] # (Auto) 0.4 (0.1-0.6) K/mm3 Eos # (Auto) (0-0.3) K/mm3 Baso # (Auto) (0.0-0.1) K/mm3 Abs Immat Gran (auto) (0.00-0.031) K/mm3 Absolute Neuts (auto) (1.3-6.7) K/mm3 Absolute Nucleated RBC (0.0-0.012) K/mm3 Nucleated RBC % (0.0-0.2) % % Immature Plt Fraction PT (11.1-14.7) Seconds INR Sodium (137-145) mmol/L Potassium (3.4-5.0) mmol/L Chloride (98-107) mmol/L Carbon Dioxide (22-30) mmol/L Anion Gap (4-12) mmol/L BUN (9-20) mg/dL Creatinine (0.7-1.3) mg/dL Estim Creat Clear Calc ml/min Estimated GFR (59 - ) Glucose (65-110) mg/dL Lactic Acid (0.7-2.0) mmol/L Calcium (8.4-10.2) mg/dL Total Bilirubin (0.2-1.3) mg/dL AST (17-59) U/L ALT (6-50) U/L Alkaline Phosphatase (38-126) U/L Total Protein (6.3-8.2) g/dL Albumin (3.5-5.1) g/dL Lipase (23-300) U/L 05/03/25 05/03/25 05/03/25 Range/Units 18:12 18:12 18:12 WBC (4.5-10.0) K/mm3 RBC (4.6-6.20) M/mm3 Hgb (14.0-18.0) g/dL Hct (42.0-52.0) % MCV (80-100) fl MCH (26-34) pg MCHC (32-36) g/dl RDW (11.5-14.5) % Plt Count (150-375) k/mm3 MPV (7.4-10.4) fl Immature Gran % (Auto) (0-0.5) % Neut % (Auto) (45.5-73.1) % Lymph % (Auto) (18.3-44.2) % [place] % (Auto) (2.6-8.5) % Eos % (Auto) (0-4.4) % Baso % (Auto) (0.2-1.2) % Lymph # (Auto) (0.9-3.2) K/mm3 [place] # (Auto) Cancelled (0.1-0.6) K/mm3 Eos # (Auto) 0.0 Cancelled (0-0.3) K/mm3 Baso # (Auto) 0.0 Cancelled (0.0-0.1) K/mm3 Abs Immat Gran (auto) 0.01 (0.00-0.031) K/mm3 Absolute Neuts (auto) (1.3-6.7) K/mm3 Absolute Nucleated RBC (0.0-0.012) K/mm3 Nucleated RBC % (0.0-0.2) % % Immature Plt Fraction PT (11.1-14.7) Seconds INR Sodium (137-145) mmol/L Potassium (3.4-5.0) mmol/L Chloride (98-107) mmol/L Carbon Dioxide (22-30) mmol/L Anion Gap (4-12) mmol/L BUN (9-20) mg/dL Creatinine (0.7-1.3) mg/dL Estim Creat Clear Calc ml/min Estimated GFR (59 - ) Glucose (65-110) mg/dL Lactic Acid (0.7-2.0) mmol/L Calcium (8.4-10.2) mg/dL Total Bilirubin (0.2-1.3) mg/dL AST (17-59) U/L ALT (6-50) U/L Alkaline Phosphatase (38-126) U/L Total Protein (6.3-8.2) g/dL Albumin (3.5-5.1) g/dL Lipase (23-300) U/L 05/03/25 05/03/25 05/03/25 Range/Units 18:12 18:12 18:12 WBC (4.5-10.0) K/mm3 RBC (4.6-6.20) M/mm3 Hgb (14.0-18.0) g/dL Hct (42.0-52.0) % MCV (80-100) fl MCH (26-34) pg MCHC (32-36) g/dl RDW (11.5-14.5) % Plt Count (150-375) k/mm3 MPV (7.4-10.4) fl Immature Gran % (Auto) (0-0.5) % Neut % (Auto) (45.5-73.1) % Lymph % (Auto) (18.3-44.2) % [place] % (Auto) (2.6-8.5) % Eos % (Auto) (0-4.4) % Baso % (Auto) (0.2-1.2) % Lymph # (Auto) (0.9-3.2) K/mm3 [place] # (Auto) (0.1-0.6) K/mm3 Eos # (Auto) (0-0.3) K/mm3 Baso # (Auto) (0.0-0.1) K/mm3 Abs Immat Gran (auto) Cancelled (0.00-0.031) K/mm3 Absolute Neuts (auto) 1.9 Cancelled (1.3-6.7) K/mm3 Absolute Nucleated RBC 0.000 Cancelled (0.0-0.012) K/mm3 Nucleated RBC % 0.0 (0.0-0.2) % % Immature Plt Fraction PT (11.1-14.7) Seconds INR Sodium (137-145) mmol/L Potassium (3.4-5.0) mmol/L Chloride (98-107) mmol/L Carbon Dioxide (22-30) mmol/L Anion Gap (4-12) mmol/L BUN (9-20) mg/dL Creatinine (0.7-1.3) mg/dL Estim Creat Clear Calc ml/min Estimated GFR (59 - ) Glucose (65-110) mg/dL Lactic Acid (0.7-2.0) mmol/L Calcium (8.4-10.2) mg/dL Total Bilirubin (0.2-1.3) mg/dL AST (17-59) U/L ALT (6-50) U/L Alkaline Phosphatase (38-126) U/L Total Protein (6.3-8.2) g/dL Albumin (3.5-5.1) g/dL Lipase (23-300) U/L 05/03/25 05/03/25 05/03/25 Range/Units 18:12 18:12 18:12 WBC (4.5-10.0) K/mm3 RBC (4.6-6.20) M/mm3 Hgb (14.0-18.0) g/dL Hct (42.0-52.0) % MCV (80-100) fl MCH (26-34) pg MCHC (32-36) g/dl RDW (11.5-14.5) % Plt Count (150-375) k/mm3 MPV (7.4-10.4) fl Immature Gran % (Auto) (0-0.5) % Neut % (Auto) (45.5-73.1) % Lymph % (Auto) (18.3-44.2) % [place] % (Auto) (2.6-8.5) % Eos % (Auto) (0-4.4) % Baso % (Auto) (0.2-1.2) % Lymph # (Auto) (0.9-3.2) K/mm3 [place] # (Auto) (0.1-0.6) K/mm3 Eos # (Auto) (0-0.3) K/mm3 Baso # (Auto) (0.0-0.1) K/mm3 Abs Immat Gran (auto) (0.00-0.031) K/mm3 Absolute Neuts (auto) (1.3-6.7) K/mm3 Absolute Nucleated RBC (0.0-0.012) K/mm3 Nucleated RBC % Cancelled (0.0-0.2) % % Immature Plt Fraction Cancelled PT 14.7 (11.1-14.7) Seconds INR 1.2 Sodium 136 L Cancelled (137-145) mmol/L Potassium 3.9 Cancelled (3.4-5.0) mmol/L Chloride 104 (98-107) mmol/L Carbon Dioxide (22-30) mmol/L Anion Gap (4-12) mmol/L BUN (9-20) mg/dL Creatinine (0.7-1.3) mg/dL Estim Creat Clear Calc ml/min Estimated GFR (59 - ) Glucose (65-110) mg/dL Lactic Acid (0.7-2.0) mmol/L Calcium (8.4-10.2) mg/dL Total Bilirubin (0.2-1.3) mg/dL AST (17-59) U/L ALT (6-50) U/L Alkaline Phosphatase (38-126) U/L Total Protein (6.3-8.2) g/dL Albumin (3.5-5.1) g/dL Lipase (23-300) U/L 05/03/25 05/03/25 05/03/25 Range/Units 18:12 18:12 18:12 WBC (4.5-10.0) K/mm3 RBC (4.6-6.20) M/mm3 Hgb (14.0-18.0) g/dL Hct (42.0-52.0) % MCV (80-100) fl MCH (26-34) pg MCHC (32-36) g/dl RDW (11.5-14.5) % Plt Count (150-375) k/mm3 MPV (7.4-10.4) fl Immature Gran % (Auto) (0-0.5) % Neut % (Auto) (45.5-73.1) % Lymph % (Auto) (18.3-44.2) % [place] % (Auto) (2.6-8.5) % Eos % (Auto) (0-4.4) % Baso % (Auto) (0.2-1.2) % Lymph # (Auto) (0.9-3.2) K/mm3 [place] # (Auto) (0.1-0.6) K/mm3 Eos # (Auto) (0-0.3) K/mm3 Baso # (Auto) (0.0-0.1) K/mm3 Abs Immat Gran (auto) (0.00-0.031) K/mm3 Absolute Neuts (auto) (1.3-6.7) K/mm3 Absolute Nucleated RBC (0.0-0.012) K/mm3 Nucleated RBC % (0.0-0.2) % % Immature Plt Fraction PT (11.1-14.7) Seconds INR Sodium (137-145) mmol/L Potassium (3.4-5.0) mmol/L Chloride Cancelled (98-107) mmol/L Carbon Dioxide 22 Cancelled (22-30) mmol/L Anion Gap 10 Cancelled (4-12) mmol/L BUN 23 H (9-20) mg/dL Creatinine (0.7-1.3) mg/dL Estim Creat Clear Calc ml/min Estimated GFR (59 - ) Glucose (65-110) mg/dL Lactic Acid (0.7-2.0) mmol/L Calcium (8.4-10.2) mg/dL Total Bilirubin (0.2-1.3) mg/dL AST (17-59) U/L ALT (6-50) U/L Alkaline Phosphatase (38-126) U/L Total Protein (6.3-8.2) g/dL Albumin (3.5-5.1) g/dL Lipase (23-300) U/L 05/03/25 05/03/25 05/03/25 Range/Units 18:12 18:12 18:12 WBC (4.5-10.0) K/mm3 RBC (4.6-6.20) M/mm3 Hgb (14.0-18.0) g/dL Hct (42.0-52.0) % MCV (80-100) fl MCH (26-34) pg MCHC (32-36) g/dl RDW (11.5-14.5) % Plt Count (150-375) k/mm3 MPV (7.4-10.4) fl Immature Gran % (Auto) (0-0.5) % Neut % (Auto) (45.5-73.1) % Lymph % (Auto) (18.3-44.2) % [place] % (Auto) (2.6-8.5) % Eos % (Auto) (0-4.4) % Baso % (Auto) (0.2-1.2) % Lymph # (Auto) (0.9-3.2) K/mm3 [place] # (Auto) (0.1-0.6) K/mm3 Eos # (Auto) (0-0.3) K/mm3 Baso # (Auto) (0.0-0.1) K/mm3 Abs Immat Gran (auto) (0.00-0.031) K/mm3 Absolute Neuts (auto) (1.3-6.7) K/mm3 Absolute Nucleated RBC (0.0-0.012) K/mm3 Nucleated RBC % (0.0-0.2) % % Immature Plt Fraction PT (11.1-14.7) Seconds INR Sodium (137-145) mmol/L Potassium (3.4-5.0) mmol/L Chloride (98-107) mmol/L Carbon Dioxide (22-30) mmol/L Anion Gap (4-12) mmol/L BUN Cancelled (9-20) mg/dL Creatinine 0.87 Cancelled (0.7-1.3) mg/dL Estim Creat Clear Calc 72 Cancelled ml/min Estimated GFR > 60 (59 - ) Glucose (65-110) mg/dL Lactic Acid (0.7-2.0) mmol/L Calcium (8.4-10.2) mg/dL Total Bilirubin (0.2-1.3) mg/dL AST (17-59) U/L ALT (6-50) U/L Alkaline Phosphatase (38-126) U/L Total Protein (6.3-8.2) g/dL Albumin (3.5-5.1) g/dL Lipase (23-300) U/L 11/14/25 11/14/25 11/14/25 Range/Units 18:12 18:12 18:12 WBC (4.5-10.0) K/mm3 RBC (4.6-6.20) M/mm3 Hgb (14.0-18.0) g/dL Hct (42.0-52.0) % MCV (80-100) fl MCH (26-34) pg MCHC (32-36) g/dl RDW (11.5-14.5) % Plt Count (150-375) k/mm3 MPV (7.4-10.4) fl Immature Gran % (Auto) (0-0.5) % Neut % (Auto) (45.5-73.1) % Lymph % (Auto) (18.3-44.2) % [place] % (Auto) (2.6-8.5) % Eos % (Auto) (0-4.4) % Baso % (Auto) (0.2-1.2) % Lymph # (Auto) (0.9-3.2) K/mm3 [place] # (Auto) (0.1-0.6) K/mm3 Eos # (Auto) (0-0.3) K/mm3 Baso # (Auto) (0.0-0.1) K/mm3 Abs Immat Gran (auto) (0.00-0.031) K/mm3 Absolute Neuts (auto) (1.3-6.7) K/mm3 Absolute Nucleated RBC (0.0-0.012) K/mm3 Nucleated RBC % (0.0-0.2) % % Immature Plt Fraction PT (11.1-14.7) Seconds INR Sodium (137-145) mmol/L Potassium (3.4-5.0) mmol/L Chloride (98-107) mmol/L Carbon Dioxide (22-30) mmol/L Anion Gap (4-12) mmol/L BUN (9-20) mg/dL Creatinine (0.7-1.3) mg/dL Estim Creat Clear Calc ml/min Estimated GFR Cancelled (59 - ) Glucose 201 H Cancelled (65-110) mg/dL Lactic Acid 1.9 (0.7-2.0) mmol/L Calcium 9.3 Cancelled (8.4-10.2) mg/dL Total Bilirubin 2.9 H (0.2-1.3) mg/dL AST (17-59) U/L ALT (6-50) U/L Alkaline Phosphatase (38-126) U/L Total Protein (6.3-8.2) g/dL Albumin (3.5-5.1) g/dL Lipase (23-300) U/L 05/03/25 05/03/25 05/03/25 Range/Units 18:12 18:12 18:12 WBC (4.5-10.0) K/mm3 RBC (4.6-6.20) M/mm3 Hgb (14.0-18.0) g/dL Hct (42.0-52.0) % MCV (80-100) fl MCH (26-34) pg MCHC (32-36) g/dl RDW (11.5-14.5) % Plt Count (150-375) k/mm3 MPV (7.4-10.4) fl Immature Gran % (Auto) (0-0.5) % Neut % (Auto) (45.5-73.1) % Lymph % (Auto) (18.3-44.2) % [place] % (Auto) (2.6-8.5) % Eos % (Auto) (0-4.4) % Baso % (Auto) (0.2-1.2) % Lymph # (Auto) (0.9-3.2) K/mm3 [place] # (Auto) (0.1-0.6) K/mm3 Eos # (Auto) (0-0.3) K/mm3 Baso # (Auto) (0.0-0.1) K/mm3 Abs Immat Gran (auto) (0.00-0.031) K/mm3 Absolute Neuts (auto) (1.3-6.7) K/mm3 Absolute Nucleated RBC (0.0-0.012) K/mm3 Nucleated RBC % (0.0-0.2) % % Immature Plt Fraction PT (11.1-14.7) Seconds INR Sodium (137-145) mmol/L Potassium (3.4-5.0) mmol/L Chloride (98-107) mmol/L Carbon Dioxide (22-30) mmol/L Anion Gap (4-12) mmol/L BUN (9-20) mg/dL Creatinine (0.7-1.3) mg/dL Estim Creat Clear Calc ml/min Estimated GFR (59 - ) Glucose (65-110) mg/dL Lactic Acid (0.7-2.0) mmol/L Calcium (8.4-10.2) mg/dL Total Bilirubin Cancelled (0.2-1.3) mg/dL AST 24 Cancelled (17-59) U/L ALT 28 Cancelled (6-50) U/L Alkaline Phosphatase 67 (38-126) U/L Total Protein (6.3-8.2) g/dL Albumin (3.5-5.1) g/dL Lipase (23-300) U/L 05/03/25 05/03/25 05/03/25 Range/Units 18:12 18:12 18:12 WBC (4.5-10.0) K/mm3 RBC (4.6-6.20) M/mm3 Hgb (14.0-18.0) g/dL Hct (42.0-52.0) % MCV (80-100) fl MCH (26-34) pg MCHC (32-36) g/dl RDW (11.5-14.5) % Plt Count (150-375) k/mm3 MPV (7.4-10.4) fl Immature Gran % (Auto) (0-0.5) % Neut % (Auto) (45.5-73.1) % Lymph % (Auto) (18.3-44.2) % [place] % (Auto) (2.6-8.5) % Eos % (Auto) (0-4.4) % Baso % (Auto) (0.2-1.2) % Lymph # (Auto) (0.9-3.2) K/mm3 [place] # (Auto) (0.1-0.6) K/mm3 Eos # (Auto) (0-0.3) K/mm3 Baso # (Auto) (0.0-0.1) K/mm3 Abs Immat Gran (auto) (0.00-0.031) K/mm3 Absolute Neuts (auto) (1.3-6.7) K/mm3 Absolute Nucleated RBC (0.0-0.012) K/mm3 Nucleated RBC % (0.0-0.2) % % Immature Plt Fraction PT (11.1-14.7) Seconds INR Sodium (137-145) mmol/L Potassium (3.4-5.0) mmol/L Chloride (98-107) mmol/L Carbon Dioxide (22-30) mmol/L Anion Gap (4-12) mmol/L BUN (9-20) mg/dL Creatinine (0.7-1.3) mg/dL Estim Creat Clear Calc ml/min Estimated GFR (59 - ) Glucose (65-110) mg/dL Lactic Acid (0.7-2.0) mmol/L Calcium (8.4-10.2) mg/dL Total Bilirubin (0.2-1.3) mg/dL AST (17-59) U/L ALT (6-50) U/L Alkaline Phosphatase Cancelled (38-126) U/L Total Protein 6.9 Cancelled (6.3-8.2) g/dL Albumin 4.4 Cancelled (3.5-5.1) g/dL Lipase 70 (23-300) U/L Imaging Data Radiologist's impression: ITS Impressions Abdomen/Pelvis CT 05/03/25 18:37 IMPRESSION: Right inguinal hernia containing small bowel loops. No bowel obstruction. Splenomegaly. Nodular liver suggestive of cirrhosis. All CT scans at this facility are performed using low dose modulation techniques as appropriate to perform exam including the following: automated exposure control; use of iterative reconstruction technique; adjustment of the mA and/or kV according to patient size (this includes techniques or standardized protocols for targeted exams where dose is matched to indication/reason for exam). Discharge Plan Discharge Clinical Impression: Inguinal hernia of right side with obstruction and without gangrene Patient Disposition: Home Condition: Stable Instructions: Inguinal Hernia (ED) Additional Instructions: rest , follow with Dr. Paez on Tuesday , continue home meds , return to ER if problem Patient Language: Thai Prescriptions: No Action atorvastatin 20 mg tablet 20 mg PO DAILY metformin 850 mg tablet 850 mg PO BID lisinopril 5 mg tablet 5 mg PO DAILY Januvia 100 mg tablet 100 mg DAILY cholecalciferol (vitamin D3) [Vitamin D3] 125 mcg (5,000 unit) Tablet 125 mcg PO DAILY aspirin 81 mg Tablet,Delayed Release (Dr/Ec) 81 mg PO QAM Qty: 30 0RF clopidogrel [Plavix] 75 mg tablet 75 mg PO DAILY Qty: 28 0RF Follow-up/Referrals: William Paez MD [Physician, General Surgery] Imelda,MD Reuben [Primary Care Provider, Unknown] Time of Disposition: 19:55
--- OUTSIDE RECORDS SUMMARY | 2025-05-03 20:22 | XMS_ITS | Clinical Summary ---
Author Organization [facility] Address [address], [facility] [address] [place] [address] Phone Care Team Providers Care Dinner Cook Name Role Phone Rafita Javier Primary Care Provider [phone] Allergies Active Allergy Reactions Criticality Noted Date Comments Iodinated Contrast Media Rash 06/09/2017 Medications metFORMIN (GLUCOPHAGE) 500 MG Tablet Take 500 mg by mouth 2 times daily. 05/23/2017 Active Active Problems Problem Noted Date Diagnosed Date Thrombocytopenia 06/09/2017 Elevated ferritin 06/09/2017 Family History Medical History Relation Name Comments Congestive Heart Failure Maternal Grandmother Heart Attack Paternal Uncle Relation Name Status Comments Maternal Grandmother Paternal Uncle Social History Tobacco Use Types Packs/Day Years Used Date Smoking Tobacco: Former Pipe 1 08/10/1974 - 06/09/1999 Smokeless Tobacco: Never Alcohol Use Standard Drinks/Week Comments Yes 0 (1 standard drink = 0.6 oz pur e alcohol) about every other week Sex and Gender Information Value Date Recorded Sex Assigned at Not on file Legal Sex Male 8:33 AM [employer] Gender Identity Not on file Sexual Orientation Not on file Last Filed Vital Signs Vital Sign Reading Time Taken Comments Blood Pressure 146/86 06/09/2017 8:24 AM [employer] Pulse 76 06/09/2017 8:24 AM [employer] Temperature 36.3 C (97.3 F) 06/09/2017 8:24 AM [employer] Respiratory Rate 16 06/09/2017 8:24 AM [employer] Oxygen Saturation 93% 06/09/2017 8:24 AM [employer] Inhaled Oxygen Concentration - - Weight 100 kg (220 lb 6.4 oz) 06/09/2017 8:24 AM [employer] Height 169.5 cm (5' 6.73) 06/09/2017 8:24 AM CS T Body Mass Index 34.8 06/09/2017 8:24 AM [employer]AMP [employer] Plan of Treatment Health Maintenance Due Date Last Done Comments Hepatitis C Virus (HCV) Screening 1955 TdaP Immunization 1955 Cologuard 1998 Colonoscopy 1998 Colorectal Cancer Screening 1998 Immunochemical Fecal Occult Blood 1998 Pneumococcal Immunization (5 0+ years) (1 of 1 - PCV) 2003 Zoster Immunization (1 of 2) 2003 Influenza Immunization (#1) 2025 SARS-COV-2 Immunization ( - season) 2025 Respiratory Syncytial Virus (RSV) Immunization (Adult) (1 - 1-dose 75+ series) 2028 Hepatitis B Immunization Aged Out No longer eligible based on patient's age to complete this topic Human Papillomavirus (HPV) Immunization Aged Out No longer eligible b ased on patient's age to complete this topic Meningococcal Immunization (ACWY) Aged Out No longer eligible based on patient's age to complete this topic Rotavirus Immunization Aged Out No lo nger eligible based on patient's age to complete this topic Insurance [facility] Care Teams Dinner Cook Relationship Specialty Start Date End Date Javier Eller [address] [place] [address] PCP - General Family Medicine 06/09/17
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
--- OUTSIDE RECORDS SUMMARY | 2025-05-03 20:22 | XMS_ITS | Continuity of Care Document ---
Author Organization [facility], Main Office Address [address] [place] [address] Assessment No assessment recorded. Plan of Treatment Reminders Order Date Submit Date Provider Last Modified By Organization Details Last Modified Time Details Appointments JOHN HENSON PATIENT 2024 05:00P M Reuben Segura M.D. Not available Not available Not available Lab CMP, serum or plasma 2024 025 amalic Not available 02/11/2025 07:29:53 urinalys is, complete 2024 025 NADEEN In-House Results, For Internal Use Only, Do Not Delete/merge, [id number] 02/05/2025 07:57:23 HbA1c (hemoglo bin A1c), blood 2024 025 amalic Not available 02/11/2025 07:29:53 lipid panel, serum 2024 025 amalic Not available 02/11/2025 07:29:53 insulin, fasting, serum 2024 025 amalic Not available 02/11/2025 07:29:53 Referral None recorded . Procedures None recorded . Surgeries None recorded . Imaging None recorded . Medication Orders compound ed medicati on 2024 025 NADEEN [email or web address] #[id number], [address], [place], [place], [id number], 02/04/2025 19:19:07 Berberin e Plus 2024 025 tonaemily [facility] #[id number], [address], [place], [place], [id number], 02/04/2025 19:19:03 Mounjaro 7.5 mg/0.5 mL subcutan eous pen injector 2024 025 NADEEN [facility] #[id number], [address], [place], [place], [id number], 02/04/2025 19:19:22 Methyl B Complex 2024 025 [facility] #[id number], [address], [place], [place], [id number], 02/04/2025 19:19:03 Vitamin C 1,000 mg tablet 2024 025 [facility] #[id number], [address] [place] [address], [id number], 02/04/2025 19:19:03 compound ed medicati on 2024 025 [facility] #53129, [address] [place] [address], [id number], 02/04/2025 19:19:03 MitoCore 2024 025 [facility] #[id number], [address] [place] [address], [id number], 02/04/2025 19:19:03 Patient TargetsNo targets recorded. Patient InstructionsNo instructions recorded. Reason for Referral None Reported. Results Created Date Observation Date Name Description Value Unit Range Abnormal Flag Note LastModifiedBy Organization Detail LastModifiedTime 02/15/2002/14/2025 URINA LYSIS , WITH MICRO SCOPI C color, urine Yellow Not Available [facility] (Lab) [address], [place], [address], 02/15/2025 06:42:52 02/15/2002/14/2025 URINA LYSIS , WITH MICRO SCOPI C appearance, urine Clear Not Available [facility] (Lab) [address], [place], [address], 02/15/2025 06:42:52 02/15/20 25 02/14/2025 URINA LYSIS , WITH MICRO SCOPI C specific gravity, urine 1.020 . 1.005- 1.030 Not Available [facility] (Lab) [address], [place], [address], 02/15/2025 06:42:52 02/15/20 25 02/14/2025 URINA LYSIS , WITH MICRO SCOPI C pH, urine 5.5 . 5.0-7. 0 Not Available [facility] (Lab) [address], [place], [address], 02/15/2025 06:42:52 02/15/20 25 02/14/2025 URINA LYSIS , WITH MICRO SCOPI C protein, UA 10 mg/dL negati ve, 10 , 20 Not Available [facility] (Lab) [address], [place], [address], 02/15/2025 06:42:52 02/15/20 25 02/14/2025 URINA LYSIS , WITH MICRO SCOPI C glucose, urine 150 mg/dL normal abnormal Not Available [facility] (Lab) [address], [place], [address], 02/15/2025 06:42:52 02/15/20 25 02/14/2025 URINA LYSIS , WITH MICRO SCOPI C ketones, urine Negati ve mg/dL negati ve Not Available [facility] (Lab) [address], [place], [address], 02/15/2025 06:42:52 02/15/20 25 02/14/2025 URINA LYSIS , WITH MICRO SCOPI C bilirubin, urine Negati ve negati ve Not Available [facility] (Lab) [address] [place], [address], 02/15/2025 06:42:52 02/15/20 25 02/14/2025 URINA LYSIS , WITH MICRO SCOPI C blood, urine Negati ve negati ve Not Available [facility] (Lab) [address], [place], [address], 02/15/2025 06:42:52 02/15/20 25 02/14/2025 URINA LYSIS , WITH MICRO SCOPI C nitrite, urine Negati ve negati ve Not Available [facility] (Lab) [address], [place], [address], 02/15/2025 06:42:52 02/15/20 25 02/14/2025 URINA LYSIS , WITH MICRO SCOPI C leukocyte esterase, urine Negati ve natalie/u L negati ve Not Available [facility] (Lab) [address], [place], [address], 02/15/2025 06:42:52 02/15/20 25 02/14/2025 URINA LYSIS , WITH MICRO SCOPI C urobilinogen , urine Normal mg/dL normal Not Available [facility] (Lab) [address], [place], [address], 02/15/2025 06:42:52 02/15/20 25 02/14/2025 URINA LYSIS , WITH MICRO SCOPI C RBC, urine 0-2 /hpf 0-2 Not Available [facility] (Lab) [address], [place], [address], 02/15/2025 06:42:52 02/15/20 25 02/14/2025 URINA LYSIS , WITH MICRO SCOPI C WBC, urine 0-5 /hpf 0-5 Not Available [facility] (Lab) [address], [place], [address], 02/15/2025 06:42:52 02/15/20 25 02/14/2025 URINA LYSIS , WITH MICRO SCOPI C bacteria, urine None /hpf Not Available [facility] (Lab) [address], [place], [address], 02/15/2025 06:42:52 02/15/20 25 02/14/2025 URINA LYSIS , WITH MICRO SCOPI C squamous epithelial cells, urine None /hpf Not Available [facility] (Lab) [address], [place], [address], 02/15/2025 06:42:52 02/15/20 25 02/14/2025 CMP(C OMPRE HENSI VE METAB OLIC PANEL ) sodium 138 mmol/ L 133-14 6 Not Available [facility] (Lab) [address], [place], [address], 02/15/2025 06:42:53 02/15/20 25 02/14/2025 CMP(C OMPRE HENSI VE METAB OLIC PANEL ) potassium 4.0 mmol/ L 3.5-5. 1 Not Available [facility] (Lab) [address], [place], [address], 02/15/2025 06:42:53 02/15/20 25 02/14/2025 CMP(C OMPRE HENSI VE METAB OLIC PANEL ) chloride 104 mmol/ L 98-107 Not Available [facility] (Lab) [address], [place], [address], 02/15/2025 06:42:53 02/15/20 25 02/14/2025 CMP(C OMPRE HENSI VE METAB OLIC PANEL ) carbon dioxide 23 mmol/ L 21-31 Not Available [facility] (Lab) [address], [place], [address], 02/15/2025 06:42:53 02/15/20 25 02/14/2025 CMP(C OMPRE HENSI VE METAB OLIC PANEL ) anion gap 11 mmol/ L 4-13 Not Available [facility] (Lab) [address], [place], [address], 02/15/2025 06:42:53 02/15/20 25 02/14/2025 CMP(C OMPRE HENSI VE METAB OLIC PANEL ) blood urea nitrogen 17 mg/dL 7-25 Not Available [facility] (Lab) [address], [place], [address], 02/15/2025 06:42:53 02/15/20 25 02/14/2025 CMP(C OMPRE HENSI VE METAB OLIC PANEL ) creatinine 0.74 mg/dL 0.60-1 .30 Not Available [facility] (Lab) [address], [place], [address], 02/15/2025 06:42:53 02/15/20 25 02/14/2025 CMP(C OMPRE HENSI VE METAB OLIC PANEL ) egfrcr (CKD-epi 2020) >90 mL/mi n/1.7 3_m2 >=60 Not Available [facility] (Lab) [address], [place], [address], 02/15/2025 06:42:53 02/15/2002/14/2025 CMP(C OMPRE HENSI VE METAB OLIC PANEL ) calcium 9.3 mg/dL 8.3-10 .5 Not Available [facility] (Lab) [address], [place], [address], 02/15/2025 06:42:53 02/15/2002/14/2025 CMP(C OMPRE HENSI VE METAB OLIC PANEL ) glucose 200 mg/dL 70-100 high Not Available [facility] (Lab) [address], [place], [address], 02/15/2025 06:42:53 02/15/2002/14/2025 CMP(C OMPRE HENSI VE METAB OLIC PANEL ) protein, total 7.2 g/dL 6.4-8. 3 Not Available [facility] (Lab) [address], [place], [address], 02/15/2025 06:42:53 02/15/20 25 02/14/2025 CMP(C OMPRE HENSI VE METAB OLIC PANEL ) albumin 4.6 g/dL 3.5-5. 0 Not Available [facility] (Lab) [address], [place], [address], 02/15/2025 06:42:53 02/15/20 25 02/14/2025 CMP(C OMPRE HENSI VE METAB OLIC PANEL ) ALT 19 units /L 11-51 Not Available [facility] (Lab) [address], [place], [address], 02/15/2025 06:42:53 02/15/20 25 02/14/2025 CMP(C OMPRE HENSI VE METAB OLIC PANEL ) alkaline phosphatase 79 units /L 34-104 Not Available [facility] (Lab) [address], [place], [address], 02/15/2025 06:42:53 02/15/20 25 02/14/2025 CMP(C OMPRE HENSI VE METAB OLIC PANEL ) AST 16 units /L 13-39 Not Available [facility] (Lab) [address], [place], [address], 02/15/2025 06:42:53 02/15/20 25 02/14/2025 CMP(C OMPRE HENSI VE METAB OLIC PANEL ) bilirubin, total 2.3 mg/dL 0.2-1. 2 high Not Available [facility] (Lab) [address], [place], [address], 02/15/2025 06:42:53 02/15/20 25 02/14/2025 INSUL IN,FA STING insulin, fasting 7.0 uIU/m L 1.9-23 .0 Not Available [facility] (Lab) [address] [place], [address], 02/15/2025 06:42:53 02/15/20 25 02/14/2025 HEMOG LOBIN A1C hemoglobin A1C 7.9 % 4.0-5. 6 high The Ameri can Diabe mikey [employer] iatio n recom mends that a prima ry goal of thera py roderick d be a HBA1C of < 7% and that physi cians shoul d reeva luate the treat ment regim en in patie nts with HBA1C value s consi stent ly > 8%. <5.7% Pastora l 5.7 - 6.4% Incre ased risk for diabe mikey >=6.5 % Diagn ostic of diabe mikey <7.0% Goal of thera py >8.0% Actio n sugge sted Not Available [facility] (Lab) [address], [place], [address], 02/15/2025 06:42:54 Result Notes None recorded. Problems Name Problem SNOMED Code Status Onset Date Resolution Date Notes Provider Name and Address Organization Details Recorded Time Uncontroll ed type 2 diabetes mellitus 583993753 Active 2024 Reuben Segura MD [address] [place] [address], [id number] , [facility] 23:53:45 Derangemen t of right knee 4271248271033 9109 Active 2024 Reuben Segura MD [address] [place] [address], [address] , [facility] 5 23:53:52 Right inguinal hernia 333002909 Active 2024 Reuben Segura MD [address] [place] [address], [address] , [facility] 5 23:53:58 Nocturia due to benign prostatic hypertroph y 8908466697363 Active 2024 Reuben Segura MD [address] [place] [address], [address] , [facility] 5 23:54:04 Obstructiv e sleep apnea syndrome 99925275 Active 2024 Reuben Segura MD [address] [place], [address] , [facility] 5 23:54:08 Fatigue 27627736 Active 2024 Reuben Segura MD [address] [place], [address] , [facility] 5 23:54:13 Diabetic peripheral neuropathy 788850890 Active 2024 Reuben Segura MD [address] [place], [address] , [facility] 5 23:54:18 Vitamin D deficiency 53537048 Active 2024 Reuben Segura MD [address] [place], [address] , [facility] 5 23:54:24 Nutritiona l deficiency state 13110684 Active 2024 Reuben Segura MD [address] [place], [address] , [facility] 23:54:28 Problem Notes None recorded. Medical Equipment None Reported. Allergies No known drug allergies Medications Name Sig Start Date Stop Date Status Note LastModified by Organization Details LastModified Time Methyl B Complex 1qd 2024 active Not Available Not Available Not Avai lable Berberine Plus 1 po bid 2024 active Not Available Not Available Not Avai lable Berberine Plus 1 po bid 2024 active Not Available Not Available Not Avai lable compounded medication 1qd 2024 active Not Available Not Available Not Avai lable MitoCore 2-4/day 2024 active Not Available Not Available Not Avai lable compounded medication 1 scoop a daily 2024 active Not Available Not Available Not Avai lable Berberine Plus 1 po bid 2024 active Not Available Not Available Not Avai lable compounded medication 1 scoop a daily 2024 active Not Available Not Available Not Avai lable compounded medication 1qd 2024 active Not Available Not Available Not Avai lable Methyl B Complex 1qd 2024 active Not Available Not Available Not Avai lable MitoCore 2-4/day 2024 active Not Available Not Available Not Avai lable Vitamin C 1,000 mg tablet 1 qd 2024 active Not Available Not Available Not Avai lable Mounjaro 7.5 mg/0.5 mL subcutaneou s pen injector ADMINISTE R 7.5 MG UNDER THE SKIN EVERY WEEK active Not Available Not Available No t Available Mounjaro 5 mg/0.5 mL subcutaneou s pen injector ADMINISTE R 5 MG UNDER THE SKIN EVERY WEEK 03/06 completed Not Available Not Available Not Available Mounjaro 2.5 mg/0.5 mL subcutaneou s pen injector ADMINISTE R 2.5 MG UNDER THE SKIN EVERY WEEK 02/04 completed Not Available Not Available Not Available Vitals Date Recorded Body height Body temperature Body mass index (BMI) Body weight Heart rate Systolic And Diastolic Provider Name and Address Organization Details Last Updated DateTime 172.72 cm 97.7 [degF] 28.2 kg/m2 95105.7 4 g 92 /min 132/82 mm[Hg] Argenis Hinton [facility] 18:03:49 Social History Question Answer Notes LastModified by Organizat ion Details LastModified Time Tobacco Smoking Status Former Smoker Mira giang [facility] 12/03/2024 19:08:24 Do You Have An Advance Directive? No Information not available 12/03/2024 Do You Wear A Helmet When Biking? Yes Information not available 12/03/2024 Are You Blind Or Do You Have Difficulty Seeing? No Information not available 12/03/2024 Is Blood Transfusion Acceptable In An Emergency? Yes Information not available 12/03/2024 What Is Your Level Of Caffeine Consumption? Moderate Information not available 12/03/2024 How Much Tobacco Do You Chew? None Information not available 12/03/2024 What Type Of Caster Operator Do You Use? None Information not available 12/03/2024 Are You Deaf Or Do You Have Serious Difficulty Hearing? No Information not available 12/03/2024 What Type Of Diet Are You Following? REGULAR Information not available 12/03/2024 Which Illicit Or Recreational Drugs Have You Used? None Information not available 12/03/2024 What Is The Highest Grade Or Level Of School You Have Completed Or The Highest Degree You Have Received? [id number] Information not available 12/03/2024 Have There Been Any Changes To Your Family Or Social Situation? No Information no t available 12/03/2024 What Is The Fluoride Status Of Your Home? Non-fluoridate d Information not available 12/03/2024 Are There Any Guns Present In Your Home? Yes Information not available 12/03/2024 What Is Your Home Situation? Other Information not available 12/03/2024 Do You Use Insect Repellent Routinely? No Information not available 12/03/2024 How Many Children Do You Have? 2 Information not available 10/24/2024 What Is Your Parents' Marital Status? Information not available 12/03/2024 Do You Have Any Pets? Yes Information not available 12/03/2024 Do You Use Protection During Sex? No Information not available 10/24/2024 What Is Your Relationship Status? Information not available 10/24/2024 What Is The Name Of Your School? [employer] Information not available 12/03/2024 Do You Use Your Seat Belt Or Car Seat Routinely? Yes Information not available 12/03/2024 Are You Sexually Active? No Information not available 10/24/2024 Do You Have Any Siblings? 2 Sisters And One Brother Information not available 12/03/2024 Do You Have Smoke And Carbon Monoxide Detectors In Your Home? Yes Information not available 12/03/2024 At What Age Did You Start Smoking Tobacco? 19 Information not available 12/03/2024 Are You Passively Exposed To Smoke? No Information no t available 12/03/2024 How Much Tobacco Do You Smoke? No Information not available 12/03/2024 What Types Of Sporting Activities Do You Participate In? Fishing Information not available 12/03/2024 Do You Use Sunscreen Routinely? No Information not available 12/03/2024 How Many Years Have You Smoked Tobacco? 20 Information not available 12/03/2024 Do You Have Difficulty Walking Or Climbing Stairs? No Information not available 12/03/2024 Sex: Unknown Functional Status Question Answer Note LastModified by Organizat ion Details LastModified Time What is your level of alcohol consumption? Occasional Information not available 12/03/2024 Are you currently employed? Yes Information not available 12/03/2024 Do you have difficulty doing errands alone? 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 No Information not available 12/03/2024 What is your exercise level? Occasional Information not available 12/03/2024 Mental Status Question Answer Note LastModified by Organizat ion Details LastModified Time Do you feel stressed (tense, restless, nervous, or anxious, or unable to sleep at night)? [id number] Information not available 12/03/2024 Do you have difficulty concentrating, remembering or making decisions? No Information no t available 12/03/2024 Are you or have you been involved with bullying? No Information not available 12/03/2024 Family History Nothing Reported. Medical History Condition Response Coronary Artery Disease Y Gout N Kidney Stones N Blood Diseases N Hyperthyroidism N Depression N COPD N Hypothyroidism N Developmental or Behavioral Disorders N Anxiety Disorder N Muscle, Joint, or Bone Problems N Vision or Eye Problems N Arthritis N Head Injury/Concussion N Congenital Anomalies N Cancer N Stroke N ADHD N Bladder or Kidney Problems N Hospital Admission other than N High Cholesterol N Liver Disease N Headaches N Fibromyalgia N Kidney Disease N Ear or Hearing Problems N Thyroid Problems N Skin Problems N Anemia N Constipation N Mental Illness N Diabetes Y Bedwetting N Seizures/Epilepsy N Heart Problems/Murmur N Tuberculosis N Diverticulitis N Asthma N Allergies N Reflux/GERD Y Heart Disease N Pulmonary Embolism N Hypertension Y Chicken Pox N Autism Spectrum Disorder (ASD) N Osteoporosis N Past Encounters Encounter ID Performer Location Encounter Start Date Encounter Closed Date Diagnosis/Indication Diagnosis SNOMED-CT Code Diagnosis ICD10 Code Diagnosis IMO Codes Diagnosis Note [id number] Reuben Segura MD Main Office [address] [place] [address] 02/04/2025 18:01:26 02/04/2025 19:21:59 Uncontrolled type 2 diabetes mellitus 696413616 E11.65 39723095 Derangemen t of right knee 3135572116 4939992 M23.91 9892305 Right inguinal hernia 23 0629080 K40.90 83861954 Nocturia d ue to benign prostatic hypertrophy 5155221233 101 N40.1 R35.1 4867621 Obstructiv e sleep apnea syndrome 15335679 G47.33 0078175 Fatigue 70383701 R53.83 2850764 Diabetic p eripheral neuropathy 814266479 E11.42 791572 Vitamin D deficiency 347 47874 E55.9 01882 Nutritiona l deficiency state 77984228 E63.9 9661 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 He had 2 weeks of diarrhea in early December and his blood sugars were between 140s and 150 then. Then he was itching all over which has happened to him previously. He vomited for 3 days. During that time, blood sugars are near 190 now thatHis sleep and energy levels are much better. Total weight loss 12 pounds since 05/2025. Saw Dayne Wheeler MD re R knee. Decided against Stem cell, but PT has improved things.R shoulder since PT. Reuben Segura MD [address] [place], [address], [facility] 02/04/2025 19:19:24
--- OUTSIDE RECORDS SUMMARY | 2025-05-03 20:22 | XMS_ITS | Data Portability ---
Author Organization MEM[facility] - [facility], [facility] Address [address] [place] [address] Assessment No assessment recorded. Plan of Treatment Reminders Order Date Submit Date Provider Last Modified By Organization Details Last Modified Time Details Appointments JOHN HENSON PATIENT 2024 05:00P Justo Segrua M.D. Not available Not available Not available Lab CMP, serum or plasma 2024 025 amalic Not available 02/11/2025 07:29:53 urinalys is, complete 2024 025 NADEEN In-House Results, For Internal Use Only, Do Not Delete/merge, [id number] 02/05/2025 07:57:23 HbA1c (hemoglo bin A1c), blood 2024 025 amalic Not available 02/11/2025 07:29:53 lipid panel, serum 2024 025 amalic Not available 02/11/2025 07:29:53 insulin, fasting, serum 2024 025 amalic Not available 02/11/2025 07:29:53 HbA1c (hemoglo bin A1c), blood 2024 025 NADEEN Not available 12/08/2024 17:21:07 PSA, serum or plasma 2024 025 amalic Not available 12/10/2024 07:28:47 HbA1c (hemoglo bin A1c), blood 2024 025 amalic Not available 10/31/2024 07:48:27 CMP, serum or plasma 2024 025 amalic Not available 10/31/2024 07:48:27 insulin, fasting, serum 2024 025 amalic Not available 10/31/2024 07:48:28 PSA, serum or plasma 2024 025 amalic Not available 10/31/2024 07:48:27 vitamin B12 + folate, serum or blood 2024 025 amalic Not available 10/31/2024 07:48:27 vitamin B12 + folate, serum or blood 2024 025 amalic Not available 10/31/2024 07:48:27 vitamin D3, 25-hydro xy, serum 2024 025 amalic Not available 10/31/2024 07:48:27 iron + TIBC + ferritin , serum 2024 025 amalic Not available 10/31/2024 07:48:27 CBC w/ auto diff 2024 025 amalic Not available 10/31/2024 07:48:27 testoste beth, total, serum 2024 025 amalic Not available 10/31/2024 07:48:28 lipid panel, serum 2024 025 amalic Not available 10/31/2024 07:48:28 TSH + free T4, serum 2024 025 amalic Not available 10/31/2024 07:48:28 nutrient panel - Cecil [facility] - Urine and Blood 2024 025 amalic Not available 10/31/2024 07:48:28 Referral None recorded . Procedures None recorded . Surgeries None recorded . Imaging MRI, knee, w/o contrast 2024 025 amalic [facility], [address] [place] [address], [place], [address], 10/31/2024 07:46:01 Medication Orders compound ed medicati on 2024 025 [facility] #[id number], [address], [place], [place], [id number], 02/04/2025 19:19:07 Berberin e Plus 2024 025 [facility], [address], [place], [place], [id number], 02/04/2025 19:19:03 Mounjaro 7.5 mg/0.5 mL subcutan eous pen injector 2024 025 [facility], [address], [place], [place], [id number], 02/04/2025 19:19:22 Methyl B Complex 2024 025 [facility], [address] [facility], [place], [place], [id number], 02/04/2025 19:19:03 Vitamin C 1,000 mg tablet 2024 025 [facility] #18949, [address] [facility], [place], [place], [id number], 02/04/2025 19:19:03 compound ed medicati on 2024 025 [facility] #44061, [address] [facility], [place], [place], [id number], 02/04/2025 19:19:03 MitoCore 2024 025 [facility]84200, [address] [facility], [place], [place], [id number], 02/04/2025 19:19:03 compound ed medicati on 2024 025 [facility] [facility] #89085, [address], [place], [place], [id number], 12/03/2024 20:10:43 Berberin e Plus [address]24 [facility] #95760, [address], [place], [place], [id number], 12/03/2024 20:10:40 Mounjaro 5 mg/0.5 mL subcutan eous pen injector [address]24 [facility] #50380, [address], [place], [place], [id number], 03/06/2025 19:27:24 Methyl B Complex 2024 [facility] #23508, [address], [place], [place], [id number], 12/03/2024 20:19:08 Vitamin C 1,[address] [facility] #57417, [address], [place], [place], [id number], 12/03/2024 20:19:08 compound ed medicati on 2024 [facility] #25939, [address], [place], [place], [id number], 12/03/2024 20:19:[address] [facility] #29129, [address], [place], [place], [id number], 12/03/2024 20:19:08 [address] Plus [address] [facility] #75575, [address], [place], [place], [id number], 10/24/2024 15:47:15 Patient TargetsNo targets recorded. Patient Instructions Encounter Date Encounter Id Patient Instructions Last Modified By Organization Details Last Modified Time 12/03/2024 type 2 diabetes: care instructions cwessling Not available 12/03/2024 20:10:40 Reason for Referral None Reported. Results Created Date Observation Date Name Description Value Unit Range Abnormal Flag Note LastModifiedBy Organization Detail LastModifiedTime 11/03/1911/02/2024 VITAM IN D, 25-OH (TOTA L D2/D3 ) vitamin D, 25-hydroxy, total 20.8 NG/mL 30.0-1 00.0 low Sugge stive of Defic iency : <20 ng/mL Sugge stive of Insuf ficie ncy: 20-29 ng/mL Sugge stive of Suffi cienc y: 30-10 0 ng/mL Sugge stive of Toxic ity: >150 ng/mL Not Available [facility] (Lab) [address] [place], [address], 11/03/2024 08:15:04 11/03/19 25 11/02/2024 CBC W/DIF F WBC 4.0 10'3/ uL 3.5-[address] [facility] (Lab) [address] [place], [address], 11/03/2024 15:02:50 11/03/19 25 11/02/2024 CBC W/DIF F RBC 5.98 10'6/ uL (based on docume nted legal sex) 4.30-5 [address] [facility] (Lab) [address] [place], [address], 11/03/2024 15:02:50 11/03/19 25 11/02/2024 CBC W/DIF F HGB 18.2 g/dL (based on docume nted legal sex) 13.0-[address] [facility] (Lab) [address] [place], [address], 11/03/2024 15:02:50 11/03/19 25 11/02/2024 CBC W/DIF F HCT 54.2 % (based on docume nted legal sex) 38.0-5 0.[address] [facility] (Lab) [address], [place], [address], 11/03/2024 15:02:50 11/03/19 25 11/02/2024 CBC W/DIF F MCV 90.6 fL 80.0-[address] [facility] (Lab) [address], [place], [address], 11/03/2024 15:02:50 11/03/19 25 11/02/2024 CBC W/DIF F MCH 30.4 pg 27.0-[address] [facility] (Lab) [address], [place], [address], 11/03/2024 15:02:50 11/03/19 25 11/02/2024 CBC W/DIF F MCHC 33.6 g/dL 32.0-[address] [facility] (Lab) [address], [place], [address], 11/03/2024 15:02:50 11/03/19 25 11/02/2024 CBC W/DIF F RDW 13.7 % 11.0-[address] [facility] (Lab) [address], [place], [address], 11/03/2024 15:02:50 11/03/19 25 11/02/2024 CBC W/DIF F plt 132 10'3/ uL 150-[address] [facility] (Lab) [address] [place], [address], 11/03/2024 15:02:50 11/03/19 25 11/02/2024 CBC W/DIF F MPV 11.5 fL 8.8-[address] [facility] (Lab) [address] [place], [address], 11/03/2024 15:02:50 11/03/19 25 11/02/2024 CBC W/DIF F NRBC's 0.0 % 0.[address] [facility] (Lab) [address] [facility], [place], [address], 11/03/2024 15:02:50 11/03/19 25 11/02/2024 CBC W/DIF F absolute NRBCs 0.0 10'3/ uL no refere nce range establ ished Not Available [facility] (Lab) [address] [facility], [place], [address], 11/03/2024 15:02:50 11/03/19 25 11/02/2024 CBC W/DIF F neutrophils 51.6 % 34.0-[address] [facility] (Lab) [address] [facility], [place], [address], 11/03/2024 15:02:50 11/03/19 25 11/02/2024 CBC W/DIF F lymphocytes 38.3 % 15.0-[address] [facility] (Lab) [address] [facility], [place], [address], 11/03/2024 15:02:50 11/03/19 25 11/02/2024 CBC W/DIF F monocytes 8.3 % 1.0-[address] [facility] (Lab) [address] [facility], [place], [address], 11/03/2024 15:02:50 11/03/19 25 11/02/2024 CBC W/DIF F eosinophils 1.3 % 0.0-8. [address] [facility] (Lab) [address] [facility], [place], [address], 11/03/2024 15:02:50 11/03/19 25 11/02/2024 CBC W/DIF F basophils 0.5 % 0.0-2. [address] [facility] (Lab) [address] [facility], [place], [address], 11/03/2024 15:02:50 11/03/19 25 11/02/2024 CBC W/DIF F immature granulocytes 0.0 % no define d refere nce range Immat ure Granu locyt es (IG) repre sents autom ated enume ratio n of Metam yeloc ytes, Myelo cytes and Promy elocy mikey when IG is < 5%. Blast s are not inclu ded in IG and repor juan m separ ately if prese nt. Not Available [facility] (Lab) [address] [facility], [place], [address], 11/03/2024 15:02:50 11/03/19 25 11/02/2024 CBC W/DIF F absolute neutrophils 2.1 10'3/ uL 1.5-8. [address] [facility] (Lab) [address] [facility], [place], [address], 11/03/2024 15:02:50 11/03/19 25 11/02/2024 CBC W/DIF F absolute lymphocytes 1.5 10'3/ uL 1.0-4. [address] [facility] (Lab) [address] [facility], [place], [address], 11/03/2024 15:02:50 11/03/19 25 11/02/2024 CBC W/DIF F absolute monocytes 0.3 10'3/ uL 0.2-1. [address] [facility] (Lab) [address] [facility], [place], [address], 11/03/2024 15:02:50 11/03/19 25 11/02/2024 CBC W/DIF F absolute eosinophils 0.1 10'3/ uL 0.0-0. [address] [facility] (Lab) [address] [place], [address], 11/03/2024 15:02:50 11/03/19 25 11/02/2024 CBC W/DIF F absolute basophils 0.0 10'3/ uL 0.0-0. [address] [facility] (Lab) [address], [place], [address], 11/03/2024 15:02:50 11/03/19 25 11/02/2024 CBC W/DIF F absolute immature granulocytes 0.0 10'3/ uL 0.00-0 .10 Refer ence range s for nonbi nary/ inter sex or unspe cifie d gende r patie nts have not been estab lishe d. Pleas e refer to the follo wing table for range s estab lishe d for cisge nder patie nts and evalu ate in the clini boo daniele xt of the indiv idual patie nt: https ://rip wyatt book. nm.or g/gen derx Not Available [facility] (Lab) [address], [place], [address], 11/03/2024 15:02:50 11/03/19 25 11/02/2024 SHLOMO TIN / IRON / TRANS SHLOMO N / TIBC iron 144 ug/dL 60-[address] [facility] (Lab) [address], [place], [address], 11/03/2024 15:02:51 11/03/19 25 11/02/2024 SHLOMO TIN / IRON / TRANS SHLOMO N / TIBC transferrin 267 mg/dL 200-[address] [facility] (Lab) [address], [place], [address], 11/03/2024 15:02:51 11/03/19 25 11/02/2024 SHLOMO TIN / IRON / TRANS SHLOMO N / TIBC ferritin 308.5 NG/mL 24.0-[address] [facility] (Lab) [address], [place], [address], 11/03/2024 15:02:51 11/03/19 25 11/02/2024 SHLOMO TIN / IRON / TRANS SHLOMO N / TIBC TIBC 374 ug/dL 250-[address] [facility] (Lab) [address] [place], [address], 11/03/2024 15:02:51 11/03/19 25 11/02/2024 SHLOMO TIN / IRON / TRANS SHLOMO N / TIBC iron saturation 39 % 20-55 Not Available [facility] (Lab) [address] [place], [address], 11/03/2024 15:02:51 11/03/19 25 11/02/2024 INSUL IN,FA STING insulin, fasting 4.5 uIU/m L 1.9-[address] [facility] (Lab) [address] [place], [address], 11/03/2024 15:02:51 11/03/19 25 11/02/2024 TESTO STERO NE, TOTAL testosterone , total 305 NG/dL 200-[address] [facility] (Lab) [address] [place], [address], 11/03/2024 15:02:51 11/03/19 25 11/02/2024 PSA TOTAL (DIAG NOSTI C) PSA, total 0.95 NG/mL 0.00-4 .00 This assay was perfo rmed using Beckm an Coult er reage nts and test kits. Value s obtai haylee with other assay metho ds or kits canno t be used inter goyal eably . Not Available [facility] (Lab) [address] [place], [address], 11/03/2024 15:02:51 11/03/19 25 11/02/2024 T4 FREE T4, free 0.85 NG/dL 0.60-1 .40 This assay is susce ptibl e to inter feren ce from high level s of bioti n which may false ly eleva te resul ts. Pleas e corre late with clini boo findi ngs. Not Available [facility] (Lab) [address] [place], [address], 11/03/2024 15:02:52 11/03/1911/02/2024 TSH TSH 1.45 uIU/m L 0.30-[address] [facility] (Lab) [address] [facility], [place], [address], 11/03/2024 15:02:52 11/03/1911/02/2024 VITAM IN B12 / FOLAT E PANEL vitamin B12 414 pg/mL 180-91 4 Pastora l Range : 180-9 14 pg/mL . Indet ermin ate Range : 145-1 80 pg/mL . Defic ient Range : <=145 pg/mL . Not Available [facility] (Lab) [address] [facility], [place], [address], 11/03/2024 15:02:52 11/03/19 25 11/02/2024 VITAM IN B12 / FOLAT E PANEL folate, serum 15.0 NG/mL 6.0-[address] [facility] (Lab) [address] [place], [address], 11/03/2024 15:02:52 11/03/1911/02/2024 LIPID PANEL ,AMA (LDL- CALC) total cholesterol 222 mg/dL 0-199 high M-Cri tical value call not requi red, prior resul t or resul ts criti boo Not Available [facility] (Lab) [address] [place], [address], 11/03/2024 15:02:52 11/03/1911/02/2024 LIPID PANEL ,AMA (LDL- CALC) triglyceride s 287 mg/dL 0-150 high NCEP Refer ence Value s for Trigl yceri jessie: Pastora l: <150 mg/dL Borde rline High: 150 - 199 mg/dL High: 200 - 499 mg/dL Very High: >/= 500 mg/dL Not Available [facility] (Lab) [address] [place], [address], 11/03/2024 15:02:52 11/03/19 25 11/02/2024 LIPID PANEL ,AMA (LDL- CALC) HDL cholesterol 48 mg/dL >40 Not Available [facility] (Lab) [address] [facility], [place], [address], 11/03/2024 15:02:52 11/03/19 25 11/02/2024 LIPID PANEL ,AMA (LDL- CALC) LDL cholesterol 130 mg/dL 0-99 high Cutof f value s recom sergio d by the Natio nal Setrella stero l Educa tion Progr am: CYDNEY ABLE: Estrella stero l <200 mg/dL LDL <100 mg/dL BORDE RLINE : Estrella stero l 200-2 39 mg/dL LDL 101-1 59 mg/dL HIGHE R RISK: Estrella stero l >240 mg/dL LDL >160 mg/dL , HDL <40 mg/dL Not Available [facility] (Lab) [address] [facility], [place], [address], 11/03/2024 15:02:52 11/03/1911/02/2024 LIPID PANEL ,AMA (LDL- CALC) non-HDL cholesterol 174 mg/dL no refere nce range A reaso nable goal for non-H DL estrella stero l is one that is 30 mg/dL highe r than the LDL estrella stero l goal. Not Available [facility] (Lab) [address] [facility], [place], [address], 11/03/2024 15:02:52 11/03/1911/02/2024 LIPID PANEL ,AMA (LDL- CALC) chol/HDL ratio 4.6 . 0.0-5. 0 On October 12, 2022, [facility] labor evelyn goyal ed the equat ion for calcu latin g estim ated low-d ensit y lipop rotei n-cho leste rol (LDL- C) from the Will castroald equat ion to the Hailey n/Ada diana equat ion. This new equat ion is only valid for lipid panel s with trigl yceri jessie < 400 mg/dL . Studi es have demon zohreh ed that this new equat ion will impro ve the accur acy of LDL-C , espec ially in scena way when LDL-C evelyn ntrat ions are relat ively low (< 100 mg/dL ), trigl yceri jessie are eleva juan m, or patie nt is non-f astin g. Refer ences : - Hailey kohli, Jurgen Caceres, Rogelio Benavides , Bradley maynard, Kevin Mcghee, Kevin patel, [facility] , and Camilo Diaz . 2013. Comp ariso n of a Novel Metho d vs the Fried luciana Equat ion for Estim ating Low-D ensit y Lipop rotei n Estrella stero l Level s from the [facility] Lipid Profi le. NATHAN: The Journ al of the Ameri can Medic al Assoc iatio n 310 (19): 2060- . - Rani murillo V, Christie J, Bony murillo A, Miladis M, Mychal e R, Yanna murillo E, Lauren [facility] RS, Joe SR, Hailey kohli SS. Fast ing Versu s Nonfa sting and Low-D ensit y Lipop rotei n Estrella stero l Accur acy. Circu latio n. 2017Jun 21;137 (1):1 0-19. Not Available [facility] (Lab) [address] [place], [address], 11/03/2024 15:02:52 11/03/1911/02/2024 CMP(C OMPRE HENSI VE METAB OLIC PANEL ) sodium 135 mmol/ L 133-[address] [facility] (Lab) [address] , [place], [address], 11/03/2024 15:02:53 11/03/1911/02/2024 CMP(C OMPRE HENSI VE METAB OLIC PANEL ) potassium 4.2 mmol/ L 3.5-5. [address] [facility] (Lab) [address] [place], [address], 11/03/2024 15:02:53 11/03/19 25 11/02/2024 CMP(C OMPRE HENSI VE METAB OLIC PANEL ) chloride 99 mmol/ L 98-[address] [facility] (Lab) [address] [facility], [place], [address], 11/03/2024 15:02:53 11/03/19 25 11/02/2024 CMP(C OMPRE HENSI VE METAB OLIC PANEL ) carbon dioxide 23 mmol/ L 21-[address] [facility] (Lab) [address] [facility], [place], [address], 11/03/2024 15:02:53 11/03/19 25 11/02/2024 CMP(C OMPRE HENSI VE METAB OLIC PANEL ) anion gap 13 mmol/ L 4-[address] [facility] (Lab) [address] [facility], [place], [address], 11/03/2024 15:02:53 11/03/19 25 11/02/2024 CMP(C OMPRE HENSI VE METAB OLIC PANEL ) blood urea nitrogen 19 mg/dL 7-25 Not Available [facility] (Lab) [address] [facility], [place], [address], 11/03/2024 15:02:53 11/03/19 25 11/02/2024 CMP(C OMPRE HENSI VE METAB OLIC PANEL ) creatinine 0.77 mg/dL 0.60-[address] [facility] (Lab) [address] [facility], [place], [address], 11/03/2024 15:02:53 11/03/19 25 11/02/2024 CMP(C OMPRE HENSI VE METAB OLIC PANEL ) egfrcr (CKD-epi 2020) >90 mL/mi n/1.7 3_m2 >=[address] [facility] (Lab) [address] [facility], [place], [address], 11/03/2024 15:02:53 11/03/19 25 11/02/2024 CMP(C OMPRE HENSI VE METAB OLIC PANEL ) calcium 9.7 mg/dL 8.3-[address] [facility] (Lab) [address] [facility], [place], [address], 11/03/2024 15:02:53 11/03/19 25 11/02/2024 CMP(C OMPRE HENSI VE METAB OLIC PANEL ) glucose 358 mg/dL 70-[address] [facility] (Lab) [address] [facility], [place], [address], 11/03/2024 15:02:53 11/03/19 25 11/02/2024 CMP(C OMPRE HENSI VE METAB OLIC PANEL ) protein, total 7.0 g/dL 6.4-8. [address] [facility] (Lab) [address] [facility], [place], [address], 11/03/2024 15:02:53 11/03/19 25 11/02/2024 CMP(C OMPRE HENSI VE METAB OLIC PANEL ) albumin 4.7 g/dL 3.5-5. [address] [facility] (Lab) [address] [facility], [place], [address], 11/03/2024 15:02:53 11/03/19 25 11/02/2024 CMP(C OMPRE HENSI VE METAB OLIC PANEL ) ALT 29 units /L 11-[address] [facility] (Lab) [address] [facility], [place], [address], 11/03/2024 15:02:53 11/03/19 25 11/02/2024 CMP(C OMPRE HENSI VE METAB OLIC PANEL ) alkaline phosphatase 97 units /L 34-[address] [facility] (Lab) [address] [facility], [place], [address], 11/03/2024 15:02:53 11/03/19 25 11/02/2024 CMP(C OMPRE HENSI VE METAB OLIC PANEL ) AST 19 units /L 13-[address] [facility] (Lab) [address] [facility], [place], [address], 11/03/2024 15:02:53 11/03/19 25 11/02/2024 CMP(C OMPRE HENSI VE METAB OLIC PANEL ) bilirubin, total 2.5 mg/dL 0.2-1. [address] [facility] (Lab) [address] [facility], [place], [address], 11/03/2024 15:02:53 11/03/19 25 11/02/2024 HEMOG LOBIN A1C hemoglobin A1C 12.0 % 4.0-5. 6 high The Ameri can Diabe mikey Assoc iatio n recom mends that a prima ry goal of thera py shoul d be a HBA1C of < 7% and that physi elyse floresva luate the treat ment regim en in patie nts with HBA1C value s consi stent ly > 8%. <5.7% Pastora l 5.7 - 6.4% Incre ased risk for diabe mikey >=6.5 % Diagn ostic of diabe mikey <7.0% Goal of thera py >8.0% Actio seun cherry Not Available [facility] (Lab) [address] [facility], [place], [address], 11/03/2024 15:02:53 12/08/19 25 12/07/2024 HEMOG LOBIN A1C hemoglobin A1C 10.4 % 4.0-5. 6 high The Ameri can Diabe mikey Assoc iatio n recom mends that a prima ry goal of thera py shoul d be a HBA1C of < 7% and that physi cians roderick worthy reeva luate the treat ment regim en in patie nts with HBA1C value s consi stent ly > 8%. <5.7% Pastora l 5.7 - 6.4% Incre ased risk for diabe mikey >=6.5 % Diagn ostic of diabe mikey <7.0% Goal of thera py >8.0% Actio seun sugge sted Not Available [facility] (Lab) [address] [facility], [place], [address], 12/08/2024 17:21:02 12/28/1912/27/2024 URINA LYSIS , WITH MICRO SCOPI C color, urine Yellow Not Available [facility] (Lab) [address] [facility], [place], [address], 12/28/2024 03:09:35 12/28/19 25 12/27/2024 URINA LYSIS , WITH MICRO SCOPI C appearance, urine Clear Not Available [facility] (Lab) [address] [facility], [place], [address], 12/28/2024 03:09:35 12/28/19 25 12/27/2024 URINA LYSIS , WITH MICRO SCOPI C specific gravity, urine 1.016 . 1.005- 1.[address] [facility] (Lab) [address] [facility], [place], [address], 12/28/2024 03:09:35 12/28/19 25 12/27/2024 URINA LYSIS , WITH MICRO SCOPI C pH, urine 6.5 . 5.0-7. [address] [facility] (Lab) [address] [facility], [place], [address], 12/28/2024 03:09:35 12/28/19 25 12/27/2024 URINA LYSIS , WITH MICRO SCOPI C protein, UA Negati ve mg/dL negati ve, 10 , [address] [facility] (Lab) [address] [facility], [place], [address], 12/28/2024 03:09:35 12/28/19 25 12/27/2024 URINA LYSIS , WITH MICRO SCOPI C glucose, urine 70 mg/dL normal abnormal Not Available [facility] (Lab) [address] [facility], [place], [address], 12/28/2024 03:09:35 12/28/19 25 12/27/2024 URINA LYSIS , WITH MICRO SCOPI C ketones, urine Negati ve mg/dL negati ve Not Available [facility] (Lab) [address], [place], [address], 12/28/2024 03:09:35 12/28/19 25 12/27/2024 URINA LYSIS , WITH MICRO SCOPI C bilirubin, urine Negati ve negati ve Not Available [facility] (Lab) [address] [facility], [place], [address], 12/28/2024 03:09:35 12/28/19 25 12/27/2024 URINA LYSIS , WITH MICRO SCOPI C blood, urine Negati ve negati ve Not Available [facility] (Lab) [address] [facility], [place], [address], 12/28/2024 03:09:35 12/28/19 25 12/27/2024 URINA LYSIS , WITH MICRO SCOPI C nitrite, urine Negati ve negati ve Not Available [facility] (Lab) [address] [facility], [place], [address], 12/28/2024 03:09:35 12/28/19 25 12/27/2024 URINA LYSIS , WITH MICRO SCOPI C leukocyte esterase, urine Negati ve natalie/u L negati ve Not Available [facility] (Lab) [address] [facility], [place], [address], 12/28/2024 03:09:35 12/28/19 25 12/27/2024 URINA LYSIS , WITH MICRO SCOPI C urobilinogen , urine Normal mg/dL normal Not Available [facility] (Lab) [address] [place], [address], 12/28/2024 03:09:35 12/28/19 25 12/27/2024 URINA LYSIS , WITH MICRO SCOPI C RBC, urine 0-2 /hpf 0-[address] [facility] (Lab) [address] [facility], [place], [address], 12/28/2024 03:09:35 12/28/19 25 12/27/2024 URINA LYSIS , WITH MICRO SCOPI C WBC, urine 0-5 /hpf 0-[address] [facility] [facility] ([facility] [address], [place], [address], 12/28/2024 03:09:35 12/28/19 25 12/27/2024 URINA LYSIS , WITH MICRO SCOPI C bacteria, urine None /hpf Not Available [facility] (Lab) [address], [place], [address], 12/28/2024 03:09:35 12/28/19 25 12/27/2024 URINA LYSIS , WITH MICRO SCOPI C squamous epithelial cells, urine None /hpf Not Available [facility] (Lab) [address], [place], [address], 12/28/2024 03:09:35 12/28/19 25 12/27/2024 URINA LYSIS , WITH MICRO SCOPI C amorphous crystal, urine Presen t /hpf none abnormal Not Available [facility] (Lab) [address], [place], [address], 12/28/2024 03:09:35 12/28/19 25 12/27/2024 CMP(C OMPRE HENSI VE METAB OLIC PANEL ) sodium 137 mmol/ L 133-[address] [facility] (Lab) [address], [place], [address], 12/28/2024 03:09:35 12/28/19 25 12/27/2024 CMP(C OMPRE HENSI VE METAB OLIC PANEL ) potassium 3.9 mmol/ L 3.5-5. [address] [facility] (Lab) [address], [place], [address], 12/28/2024 03:09:35 12/28/19 25 12/27/2024 CMP(C OMPRE HENSI VE METAB OLIC PANEL ) chloride 102 mmol/ L 98-[address] [facility] (Lab) [address], [place], [address], 12/28/2024 03:09:35 12/28/19 25 12/27/2024 CMP(C OMPRE HENSI VE METAB OLIC PANEL ) carbon dioxide 24 mmol/ L 21-[address] [facility] (Lab) [address], [place], [address], 12/28/2024 03:09:35 12/28/19 25 12/27/2024 CMP(C OMPRE HENSI VE METAB OLIC PANEL ) anion gap 11 mmol/ L 4-[address] [facility] (Lab) [address], [place], [address], 12/28/2024 03:09:35 12/28/19 25 12/27/2024 CMP(C OMPRE HENSI VE METAB OLIC PANEL ) blood urea nitrogen 18 mg/dL 7-25 Not Available [facility] (Lab) [address], [place], [address], 12/28/2024 03:09:35 12/28/19 25 12/27/2024 CMP(C OMPRE HENSI VE METAB OLIC PANEL ) creatinine 0.87 mg/dL 0.60-[address] [facility] (Lab) [address], [place], [address], 12/28/2024 03:09:35 12/28/19 25 12/27/2024 CMP(C OMPRE HENSI VE METAB OLIC PANEL ) egfrcr (CKD-epi 2020) >90 mL/mi n/1.7 3_m2 >=[address] [facility] (Lab) [address], [place], [address], 12/28/2024 03:09:35 12/28/19 25 12/27/2024 CMP(C OMPRE HENSI VE METAB OLIC PANEL ) calcium 9.6 mg/dL 8.3-[address] [facility] (Lab) [address], [place], [address], 12/28/2024 03:09:35 12/28/19 25 12/27/2024 CMP(C OMPRE HENSI VE METAB OLIC PANEL ) glucose 207 mg/dL 70-[address] [facility] (Lab) [address], [place], [address], 12/28/2024 03:09:35 12/28/19 25 12/27/2024 CMP(C OMPRE HENSI VE METAB OLIC PANEL ) protein, total 6.8 g/dL 6.4-8. [address] [facility] (Lab) [address], [place], [address], 12/28/2024 03:09:35 12/28/19 25 12/27/2024 CMP(C OMPRE HENSI VE METAB OLIC PANEL ) albumin 4.3 g/dL 3.5-5. [address] [facility] (Lab) [address], [place], [address], 12/28/2024 03:09:35 12/28/19 25 12/27/2024 CMP(C OMPRE HENSI VE METAB OLIC PANEL ) ALT 37 units /L 11-[address] [facility] (Lab) [address] [place], [address], 12/28/2024 03:09:35 12/28/19 25 12/27/2024 CMP(C OMPRE HENSI VE METAB OLIC PANEL ) alkaline phosphatase 84 units /L 34-[address] [facility] (Lab) [address] [place], [address], 12/28/2024 03:09:35 12/28/19 25 12/27/2024 CMP(C OMPRE HENSI VE METAB OLIC PANEL ) AST 31 units /L 13-[address] [facility] (Lab) [address], [place], [address], 12/28/2024 03:09:35 12/28/1912/27/2024 CMP(C OMPRE HENSI VE METAB OLIC PANEL ) bilirubin, total 1.9 mg/dL 0.2-1. [address] [facility] (Lab) [address], [place], [address], 12/28/2024 03:09:35 02/15/20 25 02/14/2025 URINA LYSIS , WITH MICRO SCOPI C color, urine Yellow Not Available [facility] (Lab) [address], [place], [address], 02/15/2025 06:42:52 02/15/20 25 02/14/2025 URINA LYSIS , WITH MICRO SCOPI C appearance, urine Clear Not Available [facility] (Lab) [address], [place], [address], 02/15/2025 06:42:52 02/15/20 25 02/14/2025 URINA LYSIS , WITH MICRO SCOPI C specific gravity, urine 1.020 . 1.005- 1.[address] [facility] (Lab) [address], [place], [address], 02/15/2025 06:42:52 02/15/20 25 02/14/2025 URINA LYSIS , WITH MICRO SCOPI C pH, urine 5.5 . 5.0-7. [address] [facility] (Lab) [address], [place], [address], 02/15/2025 06:42:52 02/15/20 25 02/14/2025 URINA LYSIS , WITH MICRO SCOPI C protein, UA 10 mg/dL negati ve, 10 , [address] [facility] (Lab) [address] [place], [address], 02/15/2025 06:42:52 02/15/20 25 02/14/2025 URINA LYSIS , WITH MICRO SCOPI C glucose, urine 150 mg/dL normal abnormal Not Available [facility] (Lab) [address], [place], [address], 02/15/2025 06:42:52 02/15/20 25 02/14/2025 URINA LYSIS , WITH MICRO SCOPI C ketones, urine Negati ve mg/dL negati ve Not Available [facility] (Lab) [address], [place], [address], 02/15/2025 06:42:52 02/15/20 25 02/14/2025 URINA LYSIS , WITH MICRO SCOPI C bilirubin, urine Negati ve negati ve Not Available [facility] (Lab) [address], [place], [address], 02/15/2025 06:42:52 02/15/20 25 02/14/2025 URINA LYSIS , WITH MICRO SCOPI C blood, urine Negati ve negati ve Not Available [facility] (Lab) [address], [place], [address], 02/15/2025 06:42:52 02/15/20 25 02/14/2025 URINA LYSIS , WITH MICRO SCOPI C nitrite, urine Negati ve negati ve Not Available [facility] (Lab) [address], [place], [address], 02/15/2025 06:42:52 02/15/20 25 02/14/2025 URINA LYSIS , WITH MICRO SCOPI C leukocyte esterase, urine Negati ve natalie/u L negati ve Not Available [facility] (Lab) [address], [place], [address], 02/15/2025 06:42:52 02/15/20 25 02/14/2025 URINA LYSIS , WITH MICRO SCOPI C urobilinogen , urine Normal mg/dL normal Not Available [facility] (Lab) [address], [place], [address], 02/15/2025 06:42:52 02/15/20 25 02/14/2025 URINA LYSIS , WITH MICRO SCOPI C RBC, urine 0-2 /hpf 0-[address] [facility] (Lab) [address], [place], [address], 02/15/2025 06:42:52 02/15/20 25 02/14/2025 URINA LYSIS , WITH MICRO SCOPI C WBC, urine 0-5 /hpf 0-[address] [facility] (Lab) [address], [place], [address], 02/15/2025 06:42:52 02/15/20 25 02/14/2025 URINA LYSIS , WITH MICRO SCOPI C bacteria, urine None /hpf Not Available [facility] (Lab) [address], [place], [address], 02/15/2025 06:42:52 02/15/20 25 02/14/2025 URINA LYSIS , WITH MICRO SCOPI C squamous epithelial cells, urine None /hpf Not Available [facility] (Lab) [address], [place], [address], 02/15/2025 06:42:52 02/15/20 25 02/14/2025 CMP(C OMPRE HENSI VE METAB OLIC PANEL ) sodium 138 mmol/ L 133-[address] [facility] (Lab) [address], [place], [address], 02/15/2025 06:42:53 02/15/20 25 02/14/2025 CMP(C OMPRE HENSI VE METAB OLIC PANEL ) potassium 4.0 mmol/ L 3.5-5. [address] [facility] (Lab) [address], [place], [address], 02/15/2025 06:42:53 02/15/20 25 02/14/2025 CMP(C OMPRE HENSI VE METAB OLIC PANEL ) chloride 104 mmol/ L 98-[address] [facility] (Lab) [address], [place], [address], 02/15/2025 06:42:53 02/15/20 25 02/14/2025 CMP(C OMPRE HENSI VE METAB OLIC PANEL ) carbon dioxide 23 mmol/ L 21-[address] [facility] (Lab) [address], [place], [address], 02/15/2025 06:42:53 02/15/20 25 02/14/2025 CMP(C OMPRE HENSI VE METAB OLIC PANEL ) anion gap 11 mmol/ L 4-[address] [facility] (Lab) [address], [place], [address], 02/15/2025 06:42:53 02/15/20 25 02/14/2025 CMP(C OMPRE HENSI VE METAB OLIC PANEL ) blood urea nitrogen 17 mg/dL 7-25 Not Available [facility] (Lab) [address], [place], [address], 02/15/2025 06:42:53 02/15/20 25 02/14/2025 CMP(C OMPRE HENSI VE METAB OLIC PANEL ) creatinine 0.74 mg/dL 0.60-[address] [facility] (Lab) [address], [place], [address], 02/15/2025 06:42:53 02/15/2002/14/2025 CMP(C OMPRE HENSI VE METAB OLIC PANEL ) egfrcr (CKD-epi 2020) >90 mL/mi n/1.7 3_m2 >=[address] [facility] (Lab) [address], [place], [address], 02/15/2025 06:42:53 02/15/20 25 02/14/2025 CMP(C OMPRE HENSI VE METAB OLIC PANEL ) calcium 9.3 mg/dL 8.3-[address] [facility] (Lab) [address], [place], [address], 02/15/2025 06:42:53 02/15/20 25 02/14/2025 CMP(C OMPRE HENSI VE METAB OLIC PANEL ) glucose 200 mg/dL 70-[address] [facility] (Lab) [address], [place], [address], 02/15/2025 06:42:53 02/15/20 25 02/14/2025 CMP(C OMPRE HENSI VE METAB OLIC PANEL ) protein, total 7.2 g/dL 6.4-8. [address] [facility] (Lab) [address], [place], [address], 02/15/2025 06:42:53 02/15/20 25 02/14/2025 CMP(C OMPRE HENSI VE METAB OLIC PANEL ) albumin 4.6 g/dL 3.5-5. [address] [facility] (Lab) [address], [place], [address], 02/15/2025 06:42:53 02/15/20 25 02/14/2025 CMP(C OMPRE HENSI VE METAB OLIC PANEL ) ALT 19 units /L 11-[address] [facility] (Lab) [address], [place], [address], 02/15/2025 06:42:53 02/15/20 25 02/14/2025 CMP(C OMPRE HENSI VE METAB OLIC PANEL ) alkaline phosphatase 79 units /L 34-[address] [facility] (Lab) [address], [place], [address], 02/15/2025 06:42:53 02/15/20 25 02/14/2025 CMP(C OMPRE HENSI VE METAB OLIC PANEL ) AST 16 units /L 13-[address] [facility] (Lab) [address], [place], [address], 02/15/2025 06:42:53 02/15/20 25 02/14/2025 CMP(C OMPRE HENSI VE METAB OLIC PANEL ) bilirubin, total 2.3 mg/dL 0.2-1. [address] [facility] (Lab) [address], [place], [address], 02/15/2025 06:42:53 02/15/20 25 02/14/2025 LIPID PANEL ,AMA (LDL- CALC) total cholesterol 168 mg/dL 0-199 M-Ict erus prese nt, which may affec t resul t Not Available [facility] (Lab) [address], [place], [address], 02/15/2025 06:42:53 02/15/20 25 02/14/2025 LIPID PANEL ,AMA (LDL- CALC) triglyceride s 204 mg/dL 0-150 high NCEP Refer ence Value s for Trigl yceri jessie: Pastora l: <150 mg/dL Borde rline High: 150 - 199 mg/dL High: 200 - 499 mg/dL Very High: >/= 500 mg/dL Not Available [facility] (Lab) [address], [place], [address], 02/15/2025 06:42:53 02/15/20 25 02/14/2025 LIPID PANEL ,AMA (LDL- CALC) HDL cholesterol 53 mg/dL >40 Not Available [facility] (Lab) [address] [place], [address], 02/15/2025 06:42:53 02/15/20 25 02/14/2025 LIPID PANEL ,AMA (LDL- CALC) LDL cholesterol 85 mg/dL 0-99 Cutof f value s recom sergio d by the Natio nal Estrella stero l Educa tion Progr am: CYDNEY ABLE: Estrella stero l <200 mg/dL LDL <100 mg/dL BORDE RLINE : Estrella stero l 200-2 39 mg/dL LDL 101-1 59 mg/dL HIGHE R RISK: Estrella stero l >240 mg/dL LDL >160 mg/dL , HDL <40 mg/dL Not Available [facility] (Lab) [address], [place], [address], 02/15/2025 06:42:53 02/15/2002/14/2025 LIPID PANEL ,AMA (LDL- CALC) non-HDL cholesterol 115 mg/dL no refere nce range A reaso nable goal for non-H DL estrella stero l is one that is 30 mg/dL highe r than the LDL estrella stero l goal. Not Available [facility] (Lab) [address], [place], [address], 02/15/2025 06:42:53 02/15/2002/14/2025 LIPID PANEL ,AMA (LDL- CALC) chol/HDL ratio 3.2 . 0.0-5. 0 On October 12, 2022, [facility] labor atori amparo goyal ed the equat ion for calcu latin g estim ated low-d ensit y lipop rotei n-cho leste rol (LDL- C) from the Fried luciana equat ion to the Hailey n/Hop kins equat ion. This new equat ion is only valid for lipid panel s with trigl yceri jessie < 400 mg/dL . Karli es milton bruner ed that this new equat ion will impro ve the accur acy of LDL-C , espec ially in scena way when LDL-C evelyn ntrat ions are relat ively low (< 100 mg/dL ), trigl yceri jessie are eleva juan m, or patie nt is non-f astin g. Refer ences : - Hailey kohli, Jurgen Caceres, Rogelio Benavides , [facility] maynard, Kevin Mcghee, Kevin patel, Joe amor , and Camilo Diaz . 2013. Comp ariso n of a Novel Metho d vs the Fried luciana Equat ion for Estim ating Low-D ensit y Lipop rotei n Estrella stero l Level s from the Stand marquis Lipid Profi le. NATHAN: The Journ al of the Ameri can Medic al Assoc iatio n 310 (19): 2060- . - Rani murillo V, Christie J, Bony murillo A, Miladis M, Mychal e R, Yanna murillo E, Lauren amor RS, Joe SR, Hailey n SS. Fast ing Versu s Nonfa sting and Low-D ensit y Lipop rotei n Estrella stero l Accur acy. Circu latio n. 2017Jun 21;137 (1):1 0-19. Not Available [facility] (Lab) [address], [place], [address], 02/15/2025 06:42:53 02/15/20 25 02/14/2025 INSUL IN,FA STING insulin, fasting 7.0 uIU/m L 1.9-[address] [facility] (Lab) [address], [place], [address], 02/15/2025 06:42:53 02/15/20 25 02/14/2025 HEMOG LOBIN [...] Goal of thera py >8.0% Actio n ree stezaynab Not Available [facility] (Lab) [address], [place], [address], 02/15/2025 06:42:54 12/07/19 25 12/06/2024 MRI, knee, w/o contr ast No observ ation record ed. [facility] [address], [place], [address], 12/07/2024 21:50:10 Result Notes Documentation Provider Name and Address Organization Details Recorded Time Hba1c (hemoglobin A1c), Blood : Reuben Segura MD [address] [place] [address], [phone], [facility] 12/09/2024 12:21:56 Problems Name Problem SNOMED Code Status Onset Date Resolution Date Notes Provider Name and Address Organization Details Recorded Time Uncontroll ed type 2 diabetes mellitus 649165458 Active 2024 Reuben Segura MD [address] [place] [address], [phone] , [facility] 5 23:53:45 Derangemen t of right knee 1894041339192 9109 Active 2024 Reuben Segura MD [address] [place] [address], [address] , [facility] 23:53:52 Right inguinal hernia 876324704 Active 2024 Reuben Segura MD [address] [place] [address], [address] , [facility] 5 23:53:58 Nocturia due to benign prostatic hypertroph y 3331310453132 Active 2024 Reuben Segura MD [address] [place] [address], [address] , [facility] 23:54:04 Obstructiv e sleep apnea syndrome 96089242 Active 2024 Reuben Segura MD [address] [place] [address], [address] , [facility] 23:54:08 Fatigue 07093018 Active 2024 Reuben Segura MD [address] [place] [address], [address] , [facility] 23:54:13 Diabetic peripheral neuropathy 770521269 Active 2024 Reuben Segura MD [address] [place], [address] , [facility] 23:54:18 Vitamin D deficiency 98593643 Active 2024 Reuben Segura MD [address] [place], [address] , [facility] 23:54:24 Nutritiona l deficiency state 47240415 Active 2024 Reuben Segura MD [address] [place], [address] , [facility] 23:54:28 Problem Notes None recorded. [...] Available Vitals Date Recorded Body height Body mass index (BMI) Body weight Heart rate Body temperature Systolic And Diastolic Provider Name and Address Organization Details Last Updated DateTime 5 172.72 cm 30 kg/m2 02096.4 2 g 98 /min 98.3 [degF] 148/82 mm[Hg] Argenis [facility] 5 14:25:36 Date Recorded Systolic And Diastolic Provider Name and Address Organization Details Last Updated DateTime 12/03/2024 120/70 mm[Hg] Reuben Segura MD [address] [place], [address], [facility] 12/03/2024 20:04:24 Date Recorded Body height Body mass index (BMI) Body weight Heart rate Body temperature Systolic And Diastolic Provider Name and Address Organization Details Last Updated DateTime 5 172.72 cm 29.5 kg/m2 24799.9 2 g 90 /min 98.3 [degF] 165/98 mm[Hg] Mira Barakat [facility] 5 19:08:10 Date Recorded Body height Body temperature Body mass index (BMI) Body weight Heart rate Systolic And Diastolic Provider Name and Address Organization Details Last Updated DateTime 172.72 cm 97.7 [degF] 28.2 kg/m2 98089.7 4 g 92 /min 132/82 mm[Hg] Argenis Barakat [facility] 18:03:49 Social History Question Answer Notes LastModified by Organizat ion Details LastModified Time Tobacco Smoking Status Former Smoker Mira giang [facility] 12/03/2024 19:08:24 Do You Have [...] Information not available 12/03/2024 What Type Of Senior Foreman Do You Use? None Information not available [...] Or The Highest Degree You Have Received? [id number] Information not available 12/03/2024 Have There Been [...] What Is The Name Of Your School? 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 No Information not available 12/03/2024 What is your exercise level? Occasional Information not available 12/03/2024 Mental Status Question Answer Note LastModified by Organizat ion Details LastModified Time Do you feel stressed (tense, restless, nervous, or anxious, or unable to sleep at night)? [id number] Information not available 12/03/2024 Do you have difficulty concentrating, remembering or making decisions? No Information no t available 12/03/2024 Are you or have you been involved with bullying? No Information not available 12/03/2024 Family History Nothing Reported. Medical History Condition Response Coronary Artery Disease Y Gout N Blood Diseases N Kidney Stones N Hyperthyroidism N Depression N COPD N Hypothyroidism N Developmental or Behavioral Disorders N Anxiety Disorder N Muscle, Joint, or Bone Problems N Vision or Eye Problems N Arthritis N Head Injury/Concussion N Congenital Anomalies N Cancer N Stroke N ADHD N Bladder or Kidney Problems N Hospital Admission other than N High Cholesterol N Liver Disease N Fibromyalgia N Headaches N Kidney Disease N Ear or Hearing Problems N Thyroid Problems N Skin Problems N Anemia N Constipation N Mental Illness N Diabetes Y Bedwetting N Heart Problems/Murmur N Seizures/Epilepsy N Tuberculosis N Diverticulitis N Asthma N Allergies N Reflux/GERD Y Heart Disease N Pulmonary Embolism N Hypertension Y Chicken Pox N Autism Spectrum Disorder (ASD) N Osteoporosis N Past Encounters Encounter ID Performer Location Encounter Start Date Encounter Closed Date Diagnosis/Indication Diagnosis SNOMED-CT Code Diagnosis ICD10 Code Diagnosis IMO Codes Diagnosis Note [id number] Reuben Segura MD Main Office [address] [place] [address] 10/24/2024 13:59:18 10/24/2024 16:00:17 Uncontrolled type 2 diabetes mellitus 070829507 E11.65 72134071 Derangemen t of right knee 7974678392 0219517 M23.91 0930971 Right inguinal hernia 23 6893169 K40.90 62035904 Nocturia d ue to benign prostatic hypertrophy 2285214624 101 N40.1 R35.1 1609496 Obstructiv e sleep apnea syndrome 77922861 G47.33 8311656 Fatigue 71586228 R53.83 6217520 Diabetic p eripheral neuropathy 382372735 E11.42 093340 [id number] Reuben Segura MD Main Office [address] [place] [address] 12/03/2024 18:25:21 12/03/2024 20:21:23 Uncontrolled type 2 diabetes mellitus 765818882 E11.65 59206326 Derangemen t of right knee 9944983183 4816874 M23.91 5251433 Right inguinal hernia 23 1804993 K40.90 91071920 Nocturia d ue to benign prostatic hypertrophy 5145771599 101 N40.1 R35.1 0880634 Obstructiv e sleep apnea syndrome 87422698 G47.33 7767058 Fatigue 32708030 R53.83 1694424 Diabetic p eripheral neuropathy 370920810 E11.42 398035 Vitamin D deficiency 347 98529 E55.9 59948 Nutritiona l deficiency state 41079846 E63.9 9661 [id number] Reuben Segura MD Main Office [address] [place] [address] 02/04/2025 18:01:26 02/04/2025 19:21:59 Uncontrolled type 2 diabetes mellitus 760353583 E11.65 04644127 Derangemen t of right knee 0682003858 5674396 M23.91 7971240 Right inguinal hernia 23 1167575 K40.90 79214510 Nocturia d ue to benign prostatic hypertrophy 3717290844 101 N40.1 R35.1 2691441 Obstructiv e sleep apnea syndrome 57942091 G47.33 5222621 Fatigue 67400022 R53.83 6661045 Diabetic p eripheral neuropathy 741493051 E11.42 694375 Vitamin D deficiency 347 94382 E55.9 00671 Nutritiona l deficiency state 13878038 E63.9 9661 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 6338776090 109 E11.3599 3996729665 Health Concerns Section Related Observation LastModified by Organization Detai ls LastModified Time None Recorded Concern Status LastModified by Organization Details LastModified Time None Recorded Advance Directives Directive N: Payers Insurance Date Sequence Insurance Name Policy Number Policy Barth Covered Member ID Barth Member ID Guarantor Name 10/24/2024 1 *SELF PAY* Lanie Garcia 10/24/2024 2 *SELF PAY* Lanie Garcia Notes Date Note Type Note Provider Name and Address Organization Details Recorded Time 10/24/2024 text/html get establishedDM 2 since 2014. weighed ca. 175-180 at the time. His highest weight was 235 pounds around 2009Currently unmedicated. He previously took metformin which was discontinued about 3 years ago because of stomach cramps micrograms and groin discomfort.Now numbness around Knees. Both feet are numb now under the forefoot.She has recently in the last 2 months resume checking his blood sugar and the typical readings are in the 300s.Januvia caused groin discomfort, similar to metformin.This is occasionally drops objects like glasses or plates from his hand. Had prior R knee injury at job site, like a tendon got pulled ca. 2021. There was no immediate pain, but he woke up about 4 mornings later with acute pain and swelling and could not bend the knee. I do not have it has slowly improved since that denies but still lacks full flexion. There is a sense of weakness about it. He has had no orthopedic or MRI evaluation. Walking is a bit slower, particularly climbing a slope or stairs. 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 He finds that his physical stamina have declined and he is considering fdc. Lately, no energy at all. He wakes with the right knee sore. He sleeps 9 hours at night now which is longer than in the past. At times he lacks the strength to go upstairs in his own house and has to be very slow about it. His was Neha Garcia who in 2013 of metastatic colon cancer. He is now happily remarried to Beronica Jose since 2016. She is a retired nurse. He has 2 children and 2 step children.Liked to sail in the [place] but has since sold the boat.They live in [facility]. little alcohol. Little sweets. He has had prostate enlargement and goes to the bathroom about 3 times a night. He has a fairly large right inguinal hernia which has not been operated on. Has lost all sexual function.CPAP 10 years.His left shoulder was operated on about 50 years ago after multiple dislocations. It lacks full range of motion and strength but generally functions well enough ruel Segura MD [address] [place], [address], [facility] 11/03/2024 18:23:52 12/03/2024 text/html He has had 4 shots of mounjaro 2.5BG down from 320s to mid 200sHe feels better and has less inflammation, particularly on his right knee. Energy has improved. Reuben Segura MD [address] [place], [address], [facility] 12/03/2024 20:20:44 02/04/2025 text/html Follow up. He had 2 [...] weight loss 12 pounds since 05/2025. Saw Dayen Wheeler MD re R knee. Decided against Stem cell, but PT has improved things.R shoulder since PT. Reuben Segura MD [address] [place], [address], [facility] 02/04/2025 19:19:24
--- OUTSIDE RECORDS SUMMARY | 2025-05-03 20:22 | XMS_ITS | Data Portability ---
Author Organization [employer], [facility] Address [address] [address] Assessment No assessment recorded. Plan of Treatment Reminders Order Date Submit Date Provider Last Modified By Organization Details Last Modified Time Details Appointments None recorded. Lab None recorded. Referral orthopedic oncology referral 2024 025 [email or web address] Not available 07:59:23 Procedures None recorded. Surgeries None recorded. Imaging XR, shoulder - rm 10 2024 025 [email or web address] Not available 14:46:41 Medication Orders None recorded. Patient TargetsNo targets recorded. Patient InstructionsNo instructions recorded. Reason for Referral Orthopedic Oncology Referral for Benign neoplasm of shoulder Referring Physician: Eugenia G[facility], Encounter Date: 12/19/2024 Results Created Date Observation Date Name Description Value Unit Range Abnormal Flag Note LastModifiedBy Organization Detail LastModifiedTime 12/21/19 25 12/06/2024 MRI, knee, w/o contr ast No observ ation record ed. BARCODE Not Available 2024 10:35:23 12/21/19 25 09/19/2019 CT, shoul holden, w/o contr ast No observ ation record ed. BARCODE Not Available 2024 10:35:23 Result Notes None recorded. Medical Equipment None Reported. Medications Name Sig Start Date Stop Date Status Note LastModified by Organization Details LastModified Time Mounjaro 5 mg/0.5 mL subcutaneous pen injector ADMINISTER 5 MG UNDER THE SKIN EVERY WEEK active Not Available Not Available N ot Available Mounjaro 2.5 mg/0.5 mL subcutaneous pen injector ADMINISTER 2.5 MG UNDER THE SKIN EVERY WEEK active Not Available Not Available No t Available Vitals Date Recorded Heart rate Systolic And Diastolic Provider Name and Address Organization Details Last Updated DateTime 12/19/2024 78 /min 136/80 mm[Hg] Kendra Gonzales [place] - [place] [employer] [employer] 12/19/2024 11:07:35 Social History None recorded. Functional Status None recorded. Mental Status None recorded. Family History Nothing Reported. Medical History No medical history recorded. Past Encounters Encounter ID Performer Location Encounter Start Date Encounter Closed Date Diagnosis/Indication Diagnosis SNOMED-CT Code Diagnosis ICD10 Code Diagnosis IMO Codes Diagnosis Note [id number] EUGENIA GOTTI PA-C [facility] [address] [facility] ,[address] [place] [address] 12/19/2024 10:48:52 12/19/2024 14:46:40 Pain of right shoulder joint [id number] 9172681 M25.511 [id number] Benign stefan plasm of shoulder 22945663 D36.7 [id number] Health Concerns Section Related Observation LastModified by Organization Detai ls LastModified Time None Recorded Concern Status LastModified by Organization Details LastModified Time None Recorded Advance Directives Directive None Recorded Payers Insurance Date Sequence Insurance Name Policy Number Policy Barth Covered Member ID Barth Member ID Guarantor Name 12/20/2024 2 [place] - [place]ERAL EMPLOYEE PROGRAM (PPO) [id number] Bijan Garcia [id number] Bijan Garcia 12/20/2024 1 [place] S Bijan Garcia [id number] Bijan Garcia
--- OUTSIDE RECORDS SUMMARY | 2025-05-03 20:22 | XMS_ITS | Clinical Summary ---
Author Organization [facility] [address] [place] [address] Care Team Providers Care Personnel Coordinator Name Role Phone Reuben Segura MD Primary Care Provider [phone] Allergies Active Allergy Reactions Criticality Noted Date Comments Dye Hives Medium 03/02/2017 Iodinated Contrast Media Hives,Unknown Medium 10/01/19 21 Medications Mounjaro 5 mg/0.5 mL pen injector injection ADMINISTER 5 MG UNDER THE SKIN EVERY WEEK 5 Active ascorbic acid (VITAMIN C) 1,000 mg tablet daily 5 Active Mounjaro 7.5 mg/0.5 mL pen injector injection ADMINISTER 7.5 MG UNDER THE SKIN EVERY WEEK 5 Active vit B jlvn-h-temousvk rofolate 680 mcg DFE capsule daily 5 Active berberine chloride/herbs (berberine-herb al drugs) capsule Take by mouth 2 (two) times a day 5 Active glucosamine-D3- Boswellia serr 1,500-400-100 mg-unit-mg tablet Take by mouth Active alpha lipoic acid 300 mg capsule 1 capsule (300 mg total) Active soybean, fermented (Nattokinase) 50 mg capsule Take by mouth Ac tive meloxicam (MOBIC) 15 mg tabletIndicatio ns:Osteoarthrit is Take 1 tablet (15 mg total) by mouth daily Take 1 daily with food 30 tablet 1 5 02/27/20 26 Active Active Problems Problem Noted Date Diagnosed Date Enchondroma of right humerus 01/14/2025 Benign neoplasm of shoulder 01/14/2025 Right shoulder pain 01/14/2025 Elevated liver enzymes 01/09/2025 Benign neoplasm of transverse colon 01/09/2025 Splenomegaly 01/09/2025 Derangement of right knee 12/24/2024 Diabetic peripheral neuropathy 12/24/2024 Fatigue 12/24/2024 Nocturia associated with benign prostatic hyperp lasia 12/24/2024 Nutritional deficiency 12/24/2024 Right inguinal hernia 12/24/2024 SHERLEY (obstructive sleep apnea) 09/30/2020 Assessment & Plan (12/23/2022 10:50 AM CDT): The patient continues to benefit from the auto titrating CPAP unit with a range of 5-20 cm water pressure. His DME supplier is [employer]. He will follow-up with me in 1 year. Assessment & Plan (10/09/2021 11:36 AM CDT): Due to the pressure feeling too strong I will change the patient's CPAP pressure to 5-10 cm water pressure while sleeping. His current DME is [employer] however he would like to switch to [facility]. I have sent an order over to change the patient's DME to [employer]. Due to medicare requirements the patient may need to complete a nocturnal PSG with split night protocol, no MSLT. Assessment & Plan (09/30/2020 9:17 AM CDT): The patient states that he will be returning to [place] soon to retrieve his auto titrating CPAP set at 5-20 cm water pressure. I have ordered the patient an auto titrating CPAP set at 5 to 20 cm water pressure in a travel size and a full set of supplies for the travel CPAP. The DME company is [employer]. The patient is benefitting from CPAP therapy. 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 Family history of heart disease 09/07/2018 Overview (01/09/2025): sister pacer Encounter for health-related screening 9 Diabetes mellitus 09/07/2018 Coronary artery disease 09/07/2018 Fatty liver 09/07/2018 Overview (01/09/2025): sterling liver , neg hep scrren Vitamin D deficiency 09/07/2018 Vitamin B12 deficiency 09/07/2018 Overview (01/09/2025): nml foloare and iron Personal history of nicotine dependence 09/08/19 19 Overview (01/09/2025): too remote to screen Obesity 09/07/2018 Microalbuminuria 09/07/2018 Hypertriglyceridemia 09/07/2018 Hyperlipidemia 09/07/2018 Elevated ferritin 06/09/2017 Disorder involving thrombocytopenia 06/09/2017 Overview (01/09/2025): sterling heme, nml foalte and iron, low b12 Encounters Date Type Department Care Team Description 05/01/2025 2:30 PM CONTACT CENTRE SUPERVISOR Office Visit [facility] [place] [facility] [address] [place] [address] [address] [place] [address] Jillian Dixon NP Primary osteoarthritis of right knee (Primary Dx); Degenerative tear of medial meniscus of right knee; Chronic pain of right knee 05/01/2025 2:00 PM CONTACT CENTRE SUPERVISOR Ancillary Procedure Radiology - [address] [place] [address] [address] [place] [address] Primary osteoarthritis of right knee; Degenerative tear of medial meniscus of right knee; Chronic pain of right knee 02/26/2025 9:49 AM CDT - 02/26/2025 11:59 PM CDT Hospital Encounter [facility] Orthopedic Imaging [address] [place] [address] Discharge Disposition: Discharge to home or self care 02/26/2025 9:38 AM CDT - 02/26/2025 11:59 PM CDT Hospital Encounter [facility] [address] [place] [id number] Discharge Disposition: Discharge to home or self care 02/26/2025 9:00 AM CDT Office Visit [facility] [address] [place] [phone] Zabrina Hall NP Primary osteoarthritis of right knee (Primary Dx); Degenerative tear of medial meniscus of right knee; Chronic pain of right knee from Last 3 Months Surgical History Surgery Date Site/Laterality Comments SHOULDER SURGERY 06/20/1969 Left dislocation Medical History Medical History Date Comments Diabetes Social History Tobacco Use Types Packs/Day Years Used Date Smoking Tobacco: Former Cigarettes Q uit: 10/01/1995 Smokeless Tobacco: Former Tobacco Cessation:Counseling Given: Not Answered AUDIT-C Answer Date Recorded Q1: How often do you have a drink containing alcohol? Never 12/23/2022 Q2: How many drinks containi ng alcohol do you have on a typical day when you are drinking? Patient does not drink Q3: How often do you have si x or more drinks on one occasion? Never 12/23/2022 Sex and Gender Information Value Date Recorded Sex Assigned at Not on file Legal Sex Male 8:52 PM CONTACT CENTRE SUPERVISOR Gender Identity Not on file Sexual Orientation Not on file Last Filed Vital Signs Vital Sign Reading Time Taken Comments Blood Pressure 144/82 12/23/2022 10:33 AM CDT Pulse 96 12/23/2022 10:33 AM CDT Temperature 36.6 C (97.9 F) 12/23/2022 10:33 AM CDT Respiratory Rate 18 10/01/2021 8:39 AM CDT Oxygen Saturation 95% 12/23/2022 10:33 AM CDT Inhaled Oxygen Concentration - - Weight 80.7 kg (178 lb) 02/26/2025 9:09 AM CDT Height 172.7 cm (5' 8) 02/26/2025 9:09 AM CDT Body Mass Index 27.06 02/26/2025 9:09 AM CDT Plan of Treatment Health Maintenance Due Date Last Done Comments Albumin Creatinine Ratio, Urine 1953 Colon Cancer Screening-Colonoscopy 1953 Depression Screening 1953 Fall Risk Assessment 1953 Hemoglobin A1C 1953 Hepatitis C Screening 1953 eGFR 1953 Dilated Eye Exam 1953 Foot Exam 1953 DTaP/Tdap/Td Vaccine (1 - Tdap) 1964 Hepatitis B Screening 1971 Pneumococcal vaccine 65+ (1 of 2 - PCV) 1972 Zoster Vaccine (1 of 2) 2003 Abdominal Aortic Aneurysm (AAA) Screen 2018 Well Visit 65+ 2018 Influenza Vaccine (#1) 2025 Lipid Panel 02/14/2026 02/14/2025, 11/02/2024 Procedures Procedure Name Priority Date/Time Associated Diagnosis Comments XR PELVIS 1 OR 2 VIEWS Schedule Routine, Read Routine (OP Routine) 05/01/2025 2:35 PM CONTACT CENTRE SUPERVISOR Primary osteoarthritis of right knee Degenerative tear of medial meniscus of right knee Chronic pain of right knee XR KNEE RIGHT 3 VIEWS Schedule Routine, Read Routine (OP Routine) 02/26/2025 10:02 AM CDT Chronic pain of right knee MSK MR OUTSIDE REFERENCE Routine 02/26/2025 9:38 AM CDT MS ARTHROCENTESIS ASPIR&/INJ MAJOR JT/BURSA W/O US Routine 02/26/2025 9:00 AM CDT Primary osteoarthritis of right knee Degenerative tear of medial meniscus of right knee Chronic pain of right knee from Last 3 Months Results * XR Pelvis 1 or 2 Views (05/01/2025 2:35 PM CONTACT CENTRE SUPERVISOR) Anatomical Region Laterality Modality Body, Pelvis N/A Computed Radiogr aphy 05/01/2025 4:15 PM CONTACT CENTRE SUPERVISOR Impressions 05/01/2025 4:15 PM CONTACT CENTRE SUPERVISOR Mild bilateral hip osteoarthritis. Electronically signed by: Ko Galindo MD Narrative 05/01/2025 4:15 PM CONTACT CENTRE SUPERVISOR EXAMINATION: XR PELVIS 1 OR 2 VIEWS HISTORY: Right knee pain FINDINGS: Single view the pelvis submitted for interpretation. Comparison is unavailable. Mild bilateral hip osteoarthritis. 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 No acute fracture. Alignment is normal. Procedure Note Ko Galindo MD - 05/01/2025 EXAMINATION: XR PELVIS 1 OR 2 VIEWS HISTORY: Right knee pain FINDINGS: Single view the pelvis submitted for interpretation. Comparison is unavailable. Mild bilateral hip osteoarthritis. 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 No acute fracture. Alignment is normal. IMPRESSION: Mild bilateral hip osteoarthritis. Electronically signed by: Ko Galindo MD us Jillian Daliladejah Dixon [employer] IMG XR PROCEDURES Final R esult * XR Knee Right 3 View (02/26/2025 10:02 AM CDT) Anatomical Region Laterality Modality Lower Extremities, Knee Right Digital Radiography 02/26/2025 10:0 9 AM CDT Impressions 02/26/2025 10:09 AM CDT 1. 3 compartment osteoarthritis right knee with more prominent narrowing of the medial right femoral tibial joint with small joint effusion without acute fractures or dislocation. 2. Mild 3 compartment left knee osteoarthritis. Electronically signed by: Marcy Mccartney M.D. Narrative 02/26/2025 10:09 AM CDT RIGHT KNEE 3 VIEWS, DATE: 02/26/2025 10:00 AM INDICATION: right knee pain. Chronic medial right knee pain. No trauma. M 25.561 COMPARISON: None TECHNIQUE: PA Ley weightbearing view both knees and lateral weightbearing view right knee and sunrise view both knees. FINDINGS: Osteopenia. 3 compartment osteoarthritis right knee with prominent narrowing of the medial femoral-tibial compartment. There is spurring arising from the tibial spine and femoral notch and posterior patella. There is a prominent spur anterior superior patella. Small suprapatellar joint effusion. Mild soft tissue swelling anterior to inferior patella and infrapatellar region. No acute fracture or dislocation right knee. PA weightbearing view left knee demonstrate mild degenerative left femoral tibial joint. Mild degenerative left patellofemoral joint with spurring posterior patella. Procedure Note Marcy Mccartney MD - 02/26/2025 RIGHT KNEE 3 VIEWS, DATE: 02/26/2025 10:00 AM INDICATION: right knee pain. Chronic medial right knee pain. No trauma. M 25.561 COMPARISON: None TECHNIQUE: PA Ley weightbearing view both knees and lateral weightbearing view right knee and sunrise view both knees. FINDINGS: Osteopenia. 3 compartment osteoarthritis right knee with prominent narrowing of the medial femoral-tibial compartment. There is spurring arising from the tibial spine and femoral notch and posterior patella. There is a prominent spur anterior superior patella. Small suprapatellar joint effusion. Mild soft tissue swelling anterior to inferior patella and infrapatellar region. No acute fracture or dislocation right knee. PA weightbearing view left knee demonstrate mild degenerative left femoral tibial joint. Mild degenerative left patellofemoral joint with spurring posterior patella. IMPRESSION: 1. 3 compartment osteoarthritis right knee with more prominent narrowing of the medial right femoral tibial joint with small joint effusion without acute fractures or dislocation. 2. Mild 3 compartment left knee osteoarthritis. Electronically signed by: Marcy Mccartney M.D. us Zabrina Hall NP IMG XR PROCEDURES Final R esult * MSK MR Outside Reference (02/26/2025 9:38 AM CDT) Impressions RAD_PACS_[facility] - 02/26/2025 9:38 AM CDT These images are for Reference purposes only and have not been reviewed by [facility] Radiology. There will be no report generated by a [facility] Radiologist. Narrative [facility]_PACS_[facility] - 02/26/2025 9:38 AM CDT EXAMINATION: Images For Reference Purposes Only us aZbrina Hall NP IMG MRI PROCEDURES Final Result RAD_PACS_[facility] * MS ARTHROCENTESIS ASPIR&/INJ MAJOR JT/BURSA W/O US (02/26/2025 9:00 AM CDT) Narrative Zabrina Hall NP - 02/26/2025 9:00 AM CDT Zabrina Hall NP 03/12/2025 10:44 AM Large Joint Injection: R knee Performed by: Zabrina Hall NP Authorized by: Zabrina Hall NP Large Joint Injection/Aspiration: Consent Given by: Patient Verbal consent obtained: Yes Supporting Documentation: Indications: Pain Procedure Details: Location: Knee Site: R knee Needle Size: 22 G Approach: Anterolateral Ultrasound guided: No Fluroscopic guidance: No Medications: 3 mL BUPivacaine HCl 0.25 % (2.5 mg/mL); 80 mg methylPREDNISolone acetate 80 mg/mL Patient tolerance: Patient tolerated the procedure well with no immediate complications Zabrina Hall NP IN CLINIC/BEDSIDE ORDERAB LES Final Result from Last 3 Months Insurance MEDICARE [facility] MEDICARE [facility] Care Teams Personnel Coordinator Relationship Specialty Start Date End Date Reuben Segura MD [address] [place] [address] PCP - General Family Medicine 02/26/25
[2025-05-03 20:26] VITALS: BP 142/85; PULSE 93; RESP 12; O2SAT 97
== END 2025-05-03 20:03 | disposition home or self-care (01) ==
PROVIDERS: Student in an Organized Health Care Education/Training Program; Emergency Provider Family Medicine; PCP Family Medicine
DX: K40.30 Unilateral inguinal hernia, with obstruction, without gangrene, not specified as recurrent (principal); I10 Essential (primary) hypertension; E78.5 Hyperlipidemia, unspecified; E11.9 Type 2 diabetes mellitus without complications; Z95.5 Presence of coronary angioplasty implant and graft; Z87.891 Personal history of nicotine dependence; Z79.84 Long term (current) use of oral hypoglycemic drugs; Z79.82 Long term (current) use of aspirin; Z79.02 Long term (current) use of antithrombotics/antiplatelets; R16.1 Splenomegaly, not elsewhere classified; R93.2 Abnormal findings on diagnostic imaging of liver and biliary tract
CPT/HCPCS: 36415; 74176; 80053; 83605; 83690; 85025; 85610; 96374; 96375; 99284; J2270; J2405; J3360